=== PATIENT | male | born 1990 | race Caucasian/White ===

== ENCOUNTER 2018-02-24 15:34 | Emergency (ER) | payer OTHER, SELFPAY ==
[2018-02-24 15:38] VITALS: BP 121/73; PULSE 130; RESP 18; TEMP 36.6; O2SAT 95
[2018-02-24] MEDS: Dexamethasone 10 MG/ML VIAL PO (15:55)
--- NOTE | 2018-02-24 15:55 | W.ED.GENAD ---
Discharge Plan Disposition Patient Disposition: HOME Condition: Good Discharge Details Chief Complaint: Sorethroat Clinical Impression: Acute streptococcal pharyngitis Primary Care Provider: NONE,NONE ED Provider: Nael Ferguson Home Meds and New Rx's Prescriptions: New amoxicillin 500 mg capsule 500 mg PO TID 10 Days Qty: 30 RF: 0 Discharge Instructions Instructions: Pharyngitis (ED) Additional Instructions: if you have inability to swallow liquids or difficulty breathing return to the emergency department follow up with your primary care provider if symptoms continue this week Discharge Data Discharge Physician: Nael Ferguson Medical Decision Making 27 yo comes in with several days of sore throat. 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 Is strep positive so will start abx, return precautions given Differential Diagnosis strep, viral pharyngitis HPI General Mode of arrival: ambulatory. Date/Time Provider Initiated Documentation: 02/24/18 15:35. Limitations to Documentation: no limitations. Information obtained by: patient. History of Present Illness 27 year old M presents to the emergency department with the chief complaint of sore throat, described as moderate, with intensity rated at 5. Quality is described as aching, Patient reports no radiation. Patient started experiencing this day(s) (3) and it has been constant. No relieving factors improve symptom(s), No exacerbating factors reported . Patient did receive the following treatments prior to arrival, none Related Data Home Medications Medication Instructions Recorded Confirmed amoxicillin 500 mg PO TID 10 Days #30 cap 02/24/18 Previous Rx's Medication Instructions Recorded amoxicillin 500 mg PO TID 10 Days #30 cap 02/24/18 Allergies Allergy/AdvReac Type Severity Reaction Status Date / Time No Known Allergies Allergy Unverified 02/24/18 15:42 General Stated Complaint: Sorethroat CHUY: 3 Review of Systems Review of Systems All systems reviewed & are unremarkable except as noted in HPI and below Constitutional Denies chills, Denies fever(s) and Denies weakness Eyes Denies loss of vision Cardiovascular Denies chest pain and Denies dyspnea Respiratory Denies dyspnea Gastrointestinal Denies abdominal pain, Denies nausea and Denies vomiting Genitourinary Denies dysuria Musculoskeletal Denies joint swelling Integumentary/Breasts Denies rash Neurologic Denies loss of vision and Denies weakness Psychiatric Denies depression Endocrine Denies cold intolerance and Denies heat intolerance Allergic/Immunologic Denies urticaria PFSH Social History Smoking/Tobacco Use Status: Current every day Exam Const General: no acute distress Orientation: alert HENMT Head: normal to inspection Ears: external ears normal General nose exam: external nose normal Mouth: moist mucous membranes Eyes General: appearance normal, both eyes and all related structures Neck Neck: normal visual inspection Resp Effort & Inspection: normal respiratory effort and able to speak in complete sentences Cardio Rate: regular rate Skin General skin exam: no rashes or lesions noted Neuro General: alert and oriented x3 Extrem General: normal to inspection Psych Mental Status: mental status grossly normal Course Vital Signs Temperature 36.6 C 02/24/18 15:38 Pulse 130 H 02/24/18 15:38 Respiratory Rate 18 02/24/18 15:38 Blood Pressure 121/73 02/24/18 15:38 Pulse Oximetry 95 02/24/18 15:38 Temperature 36.6 C 02/24/18 15:38 Temperature Source Temporal Artery Scan 02/24/18 15:38 Pulse 130 H 02/24/18 15:38 Respiratory Rate 18 02/24/18 15:38 Respiratory Effort 02/24/18 15:50 Blood Pressure 121/73 02/24/18 15:38 Pulse Oximetry 95 02/24/18 15:38 Oxygen Delivery Method Room Air 02/24/18 15:38 Oxygen Flow Rate 0 02/24/18 15:38 Lab/Test Results Lab/Test Results: POC Strep Test-AIME(Rapid) Start: 02/24/18 15:44 Freq: .Rapid Strep Test Status: Active Protocol: Document 02/24/18 15:52 GO (Rec: 02/24/18 15:52 GO [id number]) Strep test-AIME(Rapid)-POC POC-Strep test-AIME (Rapid) Positive POC-Strep test-AIME (Rapid) Positive
--- NOTE | 2018-02-24 15:58 | ED.GENADUL_ITS ---
Discharge Plan Disposition Patient Disposition: HOME Condition: Good Discharge Details Chief Complaint: Sorethroat Clinical Impression: Acute streptococcal pharyngitis Primary Care Provider: NONE,NONE ED Provider: Nael Ferguson Home Meds and New Rx's Prescriptions: New amoxicillin 500 mg capsule 500 mg PO TID 10 Days Qty: 30 RF: 0 Discharge Instructions Instructions: Pharyngitis (ED) Additional Instructions: if you have inability to swallow liquids or difficulty breathing return to the emergency department follow up with your primary care provider if symptoms continue this week Discharge Data Discharge Physician: Nael Ferguson Medical Decision Making 27 yo comes in with several days of sore throat. 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 Is strep positive so will start abx, return precautions given Differential Diagnosis strep, viral pharyngitis HPI General Mode of arrival: ambulatory . Date/Time Provider Initiated Documentation: 02/24/18 15:35 . Limitations to Documentation: no limitations . Information obtained by: patient . History of Present Illness 27 year old M presents to the emergency department with the chief complaint of sore throat, described as moderate, with intensity rated at 5. Quality is described as aching, Patient reports no radiation. Patient started experiencing this day(s) (3) and it has been constant. No relieving factors improve symptom(s), No exacerbating factors reported . Patient did receive the following treatments prior to arrival, none Related Data Home Medications Medication Instructions Recorded Confirmed amoxicillin 500 mg PO TID 10 Days #30 cap 02/24/18 Previous Rx's Medication Instructions Recorded amoxicillin 500 mg PO TID 10 Days #30 cap 02/24/18 Allergies Allergy/AdvReac Type Severity Reaction Status Date / Time No Known Allergies Allergy Unverified 02/24/18 15:42 General Stated Complaint: Sorethroat CHUY: 3 Review of Systems Review of Systems All systems reviewed & are unremarkable except as noted in HPI and below Constitutional Denies chills, Denies fever(s) and Denies weakness Eyes Denies loss of vision Cardiovascular Denies chest pain and Denies dyspnea Respiratory Denies dyspnea Gastrointestinal Denies abdominal pain, Denies nausea and Denies vomiting Genitourinary Denies dysuria Musculoskeletal Denies joint swelling Integumentary/Breasts Denies rash Neurologic Denies loss of vision and Denies weakness Psychiatric Denies depression Endocrine Denies cold intolerance and Denies heat intolerance Allergic/Immunologic Denies urticaria PFSH Social History Smoking/Tobacco Use Status: Current every day Exam Const General: no acute distress Orientation: alert HENMT Head: normal to inspection Ears: external ears normal General nose exam: external nose normal Mouth: moist mucous membranes Eyes General: appearance normal, both eyes and all related structures Neck Neck: normal visual inspection Resp Effort & Inspection: normal respiratory effort and able to speak in complete sentences Cardio Rate: regular rate Skin General skin exam: no rashes or lesions noted Neuro General: alert and oriented x3 Extrem General: normal to inspection Psych Mental Status: mental status grossly normal Course Vital Signs Temperature 36.6 C 02/24/18 15:38 Pulse 130 H 02/24/18 15:38 Respiratory Rate 18 02/24/18 15:38 Blood Pressure 121/73 02/24/18 15:38 Pulse Oximetry 95 02/24/18 15:38 Temperature 36.6 C 02/24/18 15:38 Temperature Source Temporal Artery Scan 02/24/18 15:38 Pulse 130 H 02/24/18 15:38 Respiratory Rate 18 02/24/18 15:38 Respiratory Effort 02/24/18 15:50 Blood Pressure 121/73 02/24/18 15:38 Pulse Oximetry 95 02/24/18 15:38 Oxygen Delivery Method Room Air 02/24/18 15:38 Oxygen Flow Rate 0 02/24/18 15:38 Lab/Test Results Lab/Test Results: POC Strep Test-AIME(Rapid) Start: 02/24/18 15: 44 Freq: .Rapid Strep Test Status: Active Protocol: Document 02/24/18 15:52 GO (Rec: 02/24/18 15:52 GO [id number]) Strep test-AIME(Rapid)-POC POC-Strep test-AIME (Rapid) Positive POC-Strep test-AIME (Rapid) Positive
[2018-02-24 16:43] VITALS: BP 118/80; PULSE 80; RESP 18; TEMP 36.8; O2SAT 99
== END 2018-02-24 16:44 | disposition home or self-care (01) ==
PROVIDERS: Emergency Provider Emergency Medicine
DX: J02.0 Streptococcal pharyngitis (principal)
CPT/HCPCS: 87880; 99283; J1100

== ENCOUNTER 2019-08-23 07:14 | Emergency (ER) | payer SELFPAY ==
[2019-08-23 07:21] VITALS: BP 161/110; PULSE 116; RESP 16; TEMP 36.5; O2SAT 97
--- NOTE | 2019-08-23 07:24 | ED.GENADUL_ITS ---
Discharge Plan Disposition Patient Disposition: HOME Condition: Stable Discharge Details Chief Complaint: RespSymp Clinical Impression: Cough, Bronchitis Primary Care Provider: None,None ED Provider: Nael Ferguson Home Meds and New Rx's Prescriptions: New doxycycline hyclate 100 mg tablet 100 mg PO BID Qty: 14 RF: 0 albuterol sulfate 90 mcg/actuation aerosol powdr breath activated 2 inh IH Q4H PRNQty: 1 RF: 0 Discharge Instructions Instructions: Acute Bronchitis (ED), Acute Cough (ED) Additional Instructions: you should not go to work until you have no cough for a day at least if you feel more ill, have worsening shortness of breath or high fevers return to the emergency department Medical Decision Making 28 yo male comes in with cough that is dry for several days. Denies any fevers, chills, travel or sick contacts. HE arrives in no distress speaking in full sentences with clear lung wounds other than very mild apical wheezing bialterally. HE does smoke and drinks daily denies any drug use. I suspect he has either smoker's cough vs bronchitis based on his history. Will treat with inhaler and also doxycyline, advised to f/u with pcp and return precautions given. Has no risk factors for covid19 but still advised to stay home until asymptomatic withot cough and fever Differential Diagnosis Differential Diagnosis: bronchitis, pneumonia, smoker's cough HPI General Mode of arrival: ambulatory . Date/Time Provider Initiated Documentation: 08/23/19 07:16 . Limitations to Documentation: no limitations . Information obtained by: patient . History of Present Illness 28 year old M presents to the emergency department with the chief complaint of cough, described as moderate, Patient started experiencing this day(s) (3) and it has been intermittent. No relieving factors improve symptom(s), No exacerba ting factors reported . Patient did receive the following treatments prior to arrival, none Related Data Home Medications Medication Instructions Recorded Confirmed albuterol sulfate 2 inh IH Q4H PRN #1 each 08/23/19 doxycycline hyclate 100 mg PO BID #14 tab 08/23/19 Previous Rx's Medication Instructions Recorded albuterol sulfate 2 inh IH Q4H PRN #1 each 08/23/19 doxycycline hyclate 100 mg PO BID #14 tab 08/23/19 Allergies Allergy/AdvReac Type Severity Reaction Status Date / Time No Known Allergies Allergy Unverified 08/23/19 07:28 General CHUY: 3 Review of Systems All systems reviewed & are unremarkable except as noted in HPI and below Constitutional Constitutional: Denies chills, Denies fever(s) and Denies weakness Cardiovascular Cardiovascular: Denies dyspnea Respiratory Respiratory: Denies dyspnea Gastrointestinal Gastrointestinal: Denies abdominal pain, Denies nausea and Denies vomiting Musculoskeletal Musculoskeletal: Denies joint swelling Neurologic Neurologic: Denies weakness Psychiatric Psychiatric: Denies depression COUNT INCLUDES THE [facility] Social History Smoking/Tobacco Use Status: Current every day Tobacco Type: cigarettes Alcohol Intake: current Alcohol Intake frequency: 3 or more drinks per day Alcohol type: beer Drug use: Never Do you feel safe at home: Yes Do you feel safe in your relationship?: Yes Exam Const General: no acute distress Orientation: alert HENMT Head: normal to inspection Ears: external ears normal General nose exam: external nose normal Mouth: moist mucous membranes Eyes General: appearance normal, both eyes and all related structures Neck Neck: normal visual inspection Resp Effort & Inspection: normal respiratory effort and able to speak in complete sentences Cardio Rate: regular rate Skin General skin exam: no rashes or lesions noted Neuro General: patient alert and patient oriented x3 Extrem General: normal to inspection Psych Mental Status: mental status grossly normal
--- NOTE | 2019-08-23 10:55 | CMPROGNOTE_ITS ---
- If Service Date Differs Date of service: 08/23/19 Time of Service: 10:55 Care Management Progress Note Gregorio is seen in the ED for cough and bronchitis. At the ED provider's request, CM coordinates a referral to [facility] to assist patient in establishing care with a PCP.
== END 2019-08-23 07:33 | disposition home or self-care (01) ==
LOC: ER 07:34
PROVIDERS: Emergency Provider Emergency Medicine
DX: J40 Bronchitis, not specified as acute or chronic (principal)
CPT/HCPCS: 99283

== ENCOUNTER 2019-08-30 15:38 | Outpatient (CLI) | payer SELFPAY ==
[2019-09-01 16:00] LABS: COVID-19 RT-PCR Result Not Detected ((See Note))
--- NOTE | 2019-09-15 15:04 | CMACTNOTE_ITS ---
- If Service Date Differs Date of service: 09/15/19 Time of Service: 15:04 Care Management Activity Note Per a telephone conversation with Ellie of [facility], patient cancelled the 08/30/2019 appointment and did not reschedule. He also has not completed and returned the new patient packet.
== END 2019-08-30 15:58 ==
PROVIDERS: Visit Provider Physician Assistant
DX: R05 Cough (principal)
CPT/HCPCS: U0003

== ENCOUNTER 2019-10-20 12:14 | Emergency (ER) | payer OTHER, SELFPAY ==
[2019-10-20 12:31] VITALS: BP 144/94; PULSE 106; RESP 16; TEMP 36.8; O2SAT 95
--- NOTE | 2019-10-20 13:24 | W.ED.GENAD ---
Discharge Plan Disposition Patient Disposition: HOME Condition: Stable Discharge Details Chief Complaint: RespSymp Clinical Impression: Acute left otitis media, Smokers' cough Primary Care Provider: Parminder Coto ED Provider: April Thompson Home Meds and New Rx's Prescriptions: New amoxicillin-pot clavulanate [Augmentin] 875-125 mg tablet 1 tab PO BID 7 Days Qty: 14 RF: 0 Discharge Instructions Instructions: How to Stop Smoking (ED), Ear Infection (ED) Additional Instructions: Follow up with primary care provider in 3-5 days. Return to ED sooner if any worsening or concerns. Increase oral fluids. Please take Tylenol or Ibuprofen with food every 4-6 hours as needed for pain and swelling. Take medications as directed. Referrals: Parminder Coto, [employer] [Primary Care Provider] - Discharge Data Discharge Date/Time-TO BE ENTERED AT DEPARTURE: 10/20/19 15:15 Medical Decision Making 28-year-old male presents to the ER with a week and a half of dry cough. He does have associated left ear pain and sore throat pain with coughing. He is a smoker. He also reports mild emesis and headache with hard coughing. He has not had any relief with [id number] medications. He was seen for similar episode in July was prescribed doxycycline and albuterol inhaler. He is also tested recently for COVID-19 on August 29 by his PCP which was negative. He denies any recent travel or any sick contacts was suspicious COVID-19 disease. He states he has been trying to cut down on smoking. 1330: Chest x-ray ordered and 10 mg dexamethasone p.o. ordered. TECHNIQUE: 2D digital imaging was performed. COMPARISON: No exams were available for comparison FINDINGS: The heart is not enlarged. The lungs are clear and well expanded. No pleural effusion seen. Mediastinal contours appear intact. IMPRESSION: Normal chest At this time it appears to be left otitis media. Differential diagnosis includes smoker's cough, viral illness, asthma. Patient given Augmentin 1 tablet p.o. twice daily x7 days. Patient was prescribed albuterol inhaler hand-held prior visit. Instructed to follow-up with patient's primary care provider. HPI General Mode of arrival: ambulatory. Date/Time Provider Initiated Documentation: 10/20/19 13:00. Limitations to Documentation: no limitations. Information obtained by: patient. HPI Narrative: 28-year-old male presents to the ER with a week and a half of dry cough. He does have associated left ear pain and sore throat pain with coughing. He is a smoker. He also reports mild emesis and headache with hard coughing. He has not had any relief with [id number] medications. He was seen for similar episode in July was prescribed doxycycline and albuterol inhaler. He is also tested recently for COVID-19 on August 29 by his PCP which was negative. He denies any recent travel or any sick contacts was suspicious COVID-19 disease. He states he has been trying to cut down on smoking. Related Data Home Medications Medication Instructions Recorded Confirmed amoxicillin-pot clavulanate 1 tab PO BID 7 Days #14 tab 10/20/19 [Augmentin] Previous Rx's Medication Instructions Recorded amoxicillin-pot clavulanate 1 tab PO BID 7 Days #14 tab 10/20/19 [Augmentin] Allergies Allergy/AdvReac Type Severity Reaction Status Date / Time some metals AdvReac Mild Skin Rash Uncoded 10/20/19 12:37 General Stated Complaint: RespSymp CHUY: 3 Review of Systems Narrative: Constitutional: Negative for weight loss, alert and oriented, well groomed, normal body habitus, appears comfortable. HEENT: Denies trauma, headaches, blurry vision, trouble swallowing. Positive left ear pain and throat pain with coughing. Chest: Denies chest pain, palpitations, irregular rhythm, hypertension. Respiratory: Denies Shortness of breath, hemoptysis. Positive dry nonproductive cough. GI: Denies abdominal pain, nausea, vomiting, diarrhea, constipation. : Denies dysuria, hematuria, flank pain, rectal bleeding. Neuro: Denies dizziness, blurry vision, weakness, syncope, headache or facial numbness. Hematologic: Denies easy bruising, intolerance to heat or cold, hair loss. [facility] Social History Smoking/Tobacco Use Status: Current every day Tobacco Type: cigarettes Alcohol Intake: current Alcohol Intake frequency: 3 or more drinks per day Alcohol type: beer Drug use: Never Do you feel safe at home: Yes Do you feel safe in your relationship?: Yes Exam Narrative Exam Narrative: Constitutional: Alert and oriented x3. Appears stated age. Normal body habitus. Head: Normocephalic, no trauma. Eyes: Pupils PERRLA, Red reflex noted, EOM's intact. Eyelids symmetrical without lesions, discharge, or swelling. ENT: Left tympanic membrane erythemic, loss of landmarks. No bulging. External ear normal to inspection, no mastoid TTP, swelling, or erythema, Nasal turbinates WNL, no nasal discharge. Normal dentition, Posterior pharynx erythemic tonsils are 2+ bilaterally, no exudate. Chest: RRR, Normal S1, S2, distal pulses intact. Resp: Lungs clear to auscultation bilaterally, no wheezes, rales, or rhonchi. Musculoskeletal: Normal gait, 5/5 strength to all four extremities. Skin: No suspicious rashes or lesions. Capillary refill less than 2 sec. Neurologic: Cranial nerves II-XII intact. Alert and oriented x 3. DTR's intact. Hematologic/Lymphatic: No ecchymosis, no lymphadenopathy. Course Vital Signs Vital signs: Vital Signs Temperature 36.8 C 10/20/19 12:31 Pulse 106 H 10/20/19 12:31 Respiratory Rate 16 10/20/19 12:31 Blood Pressure 144/94 H 10/20/19 12:31 Pulse Oximetry 95 10/20/19 12:31 Temperature 36.8 C 10/20/19 12:31 Temperature Source Skin 10/20/19 12:31 Pulse 106 H 10/20/19 12:31 Respiratory Rate 16 10/20/19 12:31 Respiratory Effort 10/20/19 12:39 Respiratory Depth Shallow 10/20/19 12:39 Blood Pressure 144/94 H 10/20/19 12:31 Blood Pressure Position Sitting 10/20/19 12:31 Pulse Oximetry 95 10/20/19 12:31 Oxygen Delivery Method Room Air 10/20/19 12:31 Oxygen Flow Rate 0 10/20/19 12:31 Pain Level 4 10/20/19 12:31 Comment 10/20/19 12:31
[2019-10-20] MEDS: Dexamethasone 10 MG/ML VIAL PO (13:38)
--- NOTE | 2019-10-20 13:55 | DI.RAD_ITS ---
EXAM: XR CHEST 2V PA LATERAL CLINICAL HISTORY: persistant dry Cough x 2 weeks TECHNIQUE: 2D digital imaging was performed. COMPARISON: No exams were available for comparison FINDINGS: The heart is not enlarged. The lungs are clear and well expanded. No pleural effusion seen. Mediastin al contours appear intact. IMPRESSION: Normal chest
== END 2019-10-20 15:15 | disposition home or self-care (01) ==
PROVIDERS: Emergency Provider Registered Nurse Emergency; PCP Nurse Practitioner Family
DX: H66.92 Otitis media, unspecified, left ear (principal); J41.0 Simple chronic bronchitis; J02.9 Acute pharyngitis, unspecified; F17.210 Nicotine dependence, cigarettes, uncomplicated
CPT/HCPCS: 99283; 71046; J1100

== ENCOUNTER 2020-09-29 05:35 | Emergency (ER) | payer SELFPAY ==
[2020-09-29 05:38] VITALS: BP 141/100; PULSE 110; RESP 18; TEMP 36.6; O2SAT 96
--- NOTE | 2020-09-29 05:46 | W.ED.GENAD ---
Discharge Plan Disposition Patient Disposition: HOME Condition: Good Discharge Details Clinical Impression: Pharyngitis, Acute left otitis media Primary Care Provider: Parminder Coto ED Provider: Indio Choudhary Home Meds and New Rx's Prescriptions: New amoxicillin-pot clavulanate [Augmentin] 875-125 mg tablet 1 tab PO BID Qty: 14 RF: 0 Discharge Instructions Instructions: Pharyngitis (ED), Ear Infection (ED) Additional Instructions: At this time you have evidence of a mild ear infection and pharyngitis. Please take the antibiotic Augmentin as prescribed. Please also take 800 mg of ibuprofen every 6 hours and 1000 mg of Tylenol every 6 hours as needed to help with any sore throat pain or ear pain. You can also take lsez-ypr-bhbvyug loratadine 10 mg daily to help with the drainage in your ears and to decrease your congestion. If you notice any worsening of your symptoms, or any new symptoms such as vomiting, diarrhea, fever, chills, shortness of breath, chest pain, numbness, weakness, or fainting , please return immediately to the emergency department for reevaluation. Please follow up with your primary care provider as soon as possible for reassessment and reevaluation. As always, it was a pleasure participating in your medical care today. Referrals: Parminder Coto, [employer] [Primary Care Provider] - Medical Decision Making This is a 29-year-old male with a past medical history of tobacco abuse who presents today for evaluation of cough ear pain congestion. Patient states that his children have been sick for the last 2 weeks, with cough runny nose and sore throat. They were tested at their daycare and their Covid test was negative. Patient reports that for the last 4 days he has had cough, bilateral ear pain, and sore throat. He denies any headache or neck pain. He does admit to regular tobacco use smoking about a pack per day. He did does state that he had a fever 4 days ago but has not had any since then. He denies any chest pain, chest heaviness. His cough is mildly productive with noncolored sputum. No other complaints at this time. No other modifying factors. Exam demonstrates a small amount effusion in the patient's left tympanic membrane. Tonsils are red and mildly inflamed on the left. Lungs are clear. No indication for x-ray at this time. Oxygenation stable. Suspect left otitis media in conjunction with potential pharyngitis/strep pharyngitis. We will test for strep. Patient does warrant antibiotic treatment for his ear infection. Will give Augmentin prescription for home. Discussed the importance of Tylenol and Motrin. Strep test was negative. Patient will be discharged home with prescription for Augmentin, recommendations for Tylenol Motrin. Discussed red flags for which to return. I have extensively reviewed the treatment plan and discharge instructions with the patient. I have addressed all patient concerns at this time. The patient was made aware of what symptoms to monitor for that would warrant a return to the emergency department. Discussed the plan with the patient, they demonstrate verbal understanding and agreement with our assessment and plan at this time. The documentation in this chart was dictated using [employer] dictation software. Please excuse any dictation errors. HPI General Date/Time Provider Initiated Documentation: 09/29/20 05:39. HPI Narrative: This is a 29-year-old male with a past medical history of tobacco abuse who presents today for evaluation of cough ear pain congestion. Patient states that his children have been sick for the last 2 weeks, with cough runny nose and sore throat. They were tested at their daycare and their Covid test was negative. Patient reports that for the last 4 days he has had cough, bilateral ear pain, and sore throat. He denies any headache or neck pain. He does admit to regular tobacco use smoking about a pack per day. He did does state that he had a fever 4 days ago but has not had any since then. He denies any chest pain, chest heaviness. His cough is mildly productive with noncolored sputum. No other complaints at this time. No other modifying factors. No loss of taste or smell. Related Data Home Medications Medication Instructions Recorded Confirmed amoxicillin-pot clavulanate 1 tab PO BID #14 tab 09/29/20 [Augmentin] Previous Rx's Medication Instructions Recorded amoxicillin-pot clavulanate 1 tab PO BID #14 tab 09/29/20 [Augmentin] Allergies Allergy/AdvReac Type Severity Reaction Status Date / Time some metals AdvReac Mild Skin Rash Uncoded 10/20/19 12:37 General Stated Complaint: RespSymp CHUY: 4 Review of Systems All systems reviewed & are unremarkable except as noted in HPI and below [facility] Social History Smoking/Tobacco Use Status: Current every day Tobacco Type: cigarettes Smoking risk assessment performed?: Yes Alcohol Intake: current Alcohol Intake frequency: 3 or more drinks per day Alcohol type: beer Drug use: Never Do you feel safe at home: Yes Do you feel safe in your relationship?: Yes Exam Narrative Exam Narrative: 1.Const: Well-nourished, Well-developed, appearing stated age 2.Eyes: PERRL, no conjunctival injection, and symmetrical lids. 3.ENT: Atraumatic external nose and ears. Moist MM. Neck: Symmetric, trachea midline, No thyromegaly. Small effusion in the patient's left ear, no effusion in the patient's right ear. Mild erythema in the left. Tonsils are mildly enlarged, mildly erythematous. Minimal tonsillar exudate on the left. No tonsillar exudate on the right. No signs of Ludewig's angina. No signs of airway compromise whatsoever. 4.CVS: +S1/S2, No murmurs or gallops. Peripheral pulses 2+ and equal in all extremities. Brisk capillary refill in all extremities. 5.RESP: Unlabored respiratory effort. Clear to auscultation bilaterally. No wheezes rales or rhonchi 6.GI: Soft, Nontender/Nondistended, No hepatosplenomegaly. No guarding or rebound. 7.MSK: Normocephalic/Atraumatic, Extremities w/o deformity or ttp No cyanosis or clubbing, Normal movement of all extremities 8.Skin: Warm, Dry. No rashes or lesions. 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 Sensation grossly intact, no focal neurologic deficits. 10.Psych: (AAO) x3. Appropriate mood and affect Course Vital Signs Vital signs: Vital Signs Temperature 36.6 C 09/29/20 05:38 Pulse 110 H 09/29/20 05:38 Respiratory Rate 18 09/29/20 05:38 Blood Pressure 141/100 H 09/29/20 05:38 Pulse Oximetry 96 09/29/20 05:38 Temperature 36.6 C 09/29/20 05:38 Pulse 110 H 09/29/20 05:38 Respiratory Rate 18 09/29/20 05:38 Respiratory Effort Non-Labored 09/29/20 05:41 Respiratory Depth Normal 09/29/20 05:41 Blood Pressure 141/100 H 09/29/20 05:38 Pulse Oximetry 96 09/29/20 05:38 Oxygen Delivery Method Room Air 09/29/20 05:38 Oxygen Flow Rate 0 09/29/20 05:38 Pain Level 4 09/29/20 05:38
[2020-09-29 05:58] VITALS: BP 135/77; PULSE 96
== END 2020-09-29 05:55 | disposition home or self-care (01) ==
LOC: ER 05:56
PROVIDERS: Emergency Provider Student in an Organized Health Care Education/Training Program; PCP Nurse Practitioner Family
DX: H66.92 Otitis media, unspecified, left ear (principal); J02.9 Acute pharyngitis, unspecified
CPT/HCPCS: 87880; 99283; 87081

== ENCOUNTER 2023-02-26 08:22 | Inpatient (IN) | payer BC, SELFPAY ==
[2023-02-26] VITALS (117 sets, daily range): BP systolic 72–157; BP diastolic 45–113; PULSE 59–109; RESP 11–40; TEMP 36–36.7; O2SAT 80–100
--- NOTE | 2023-02-26 | DI.RAD_ITS ---
Exam(s) XR PORTABLE CHEST AP EXAM: XR PORTABLE CHEST AP CLINICAL HISTORY: respiratory failure TECHNIQUE: 2D digital imaging was performed of the chest. One image was obtained. An AP view was ob tained. COMPARISON: CR XR PORTABLE CHEST AP from 02/26/2023 FINDINGS: MEDIASTINUM: Normal. HEART: Normal. PULMONARY VASCULATURE: Normal. LUNGS: There are bilateral pulmonary opacities occupying the right hemithorax and the left lung base medially. PLEURAL SPACE: No pleural effusion or pneumothorax. BONE:Within normal limits for the patient's age. OTHER FINDINGS:The tip of the endotracheal tube is 3 cm above the trena. The left subclavian centra l venous catheter is in good position and likely lies in the proximal superior vena cava. The tip of the nasogastric tube is in the distal esophagus. It should be advanced into the stomach. IMPRESSION: 1. Bilateral pulmonary infiltrates which appears stable. 2. The tip of the enteric tube is in the distal esophagus and should be advanced. DATA REPOSITORY: RADIATION DOSE DELIVERED:
--- NOTE | 2023-02-26 08:30 | RT.EKG_ITS ---
APPROVED REPORT Exam: Resting ECG Reason for Exam: overdose Patient Location: E HR:103 bpm ECG Measurements Heart Rate 103 AXIS AZ 158 P 63 QRSd 86 QRS 74 QT 382 T 49 QTc 500 Conclusion Sinus tachycardia...rate> 99 Prolonged QT interval...QTc >488mS
--- NOTE | 2023-02-26 08:30 | DI.CT_ITS ---
Exam(s) CT HEAD WO EXAM: CT HEAD WO CLINICAL HISTORY: altered. TECHNIQUE: Imaging Protocol: Axial computed tomography images with coronal and sagittal reformatted images were created and reviewed COMPARISON: No exams were available for comparison FINDINGS: The examination is limited due to patient motion artifact. Ventricles and Extra axial spaces: Normal in size and morphology for the patient's age. Hemorrhage: None. Cerebral parenchyma: Normal. Midline shift: None. Brainstem/Cerebellum: Normal. Calvarium: Normal. Visualized Paranasal sinuses/Mastoids: Clear. Soft Tissues: Unremarkable. IMPRESSION: No acute intracranial process. RADIATION DOSE DELIVERED: Total DLP DATA REPOSITORY: All CT scans at this facility are submitted to the National Radiology Data Registry (NRDR) Dose Index Registry (DIR) with the [employer] (ACR). RADIATION OPTIMIZATION: All CT scans at this facility use at least one of these dose optimization te chniques: automated exposure control; mA and/or kV adjustment per patient size (includes targeted exa ms where dose is matched to clinical indication); or iterative reconstruction.
[2023-02-26] MEDS: Ketamine 500 MG/10 ML VIAL 325 MG IM (08:40)
--- NOTE | 2023-02-26 09:02 | W.ED.GENAD ---
Discharge Plan Disposition Patient Disposition: Admit to [facility] Condition: Critical Discharge Details Clinical Impression: Bilateral pulmonary infiltrates, Abnormal transaminases, Acidosis, Acute respiratory failure with hypoxia and hypercarbia, Altered mental status Admit Date/Time: 02/26/23 09:59 Admit Provider: Johnson Carrillo Attending Provider: Johnson Carrillo Primary Care Provider: None,None ED Provider: Cristhian England Discharge Data Discharge Date/Time-TO BE ENTERED AT DEPARTURE: 02/26/23 11:53 Medical Decision Making 908?- Patient was seen immediately on arrival. Patient is a 32-year-old male who arrives by EMS having been found down, hypoxic, bystander CPR. Unknown downtime. EMS has given a total of 6 mg of naloxone and patient did have return of spontaneous ventilation after approximately 20 minutes post administration of naloxone. Patient is saturating in the 80s on nasal cannula. Nonrebreather oxygen applied and now saturating 100%. Patient is quite confused. Patient unable to cooperate with exam and treatment. No signs of head trauma. Unclear etiology for altered mental status. Patient does have needlestick right AC. Concern for polysubstance abuse and opioid overdose. Consider hypoxic brain injury given unknown downtime. Patient was given ketamine 325 mg IM as a procedural sedation to allow for IV access and further diagnostics. IV placed right arm by nursing. Second IV placed left arm by me under ultrasound guidance. Plan for stat CT of the head to assess for acute intracranial hemorrhage. EKG was reviewed and interpreted by me: Sinus tachycardia 103 bpm, prolonged QT interval with QTc of 500. Ketamine wearing off. Patient agitated, anxious and unable to cooperate with exam. given Versed 4 mg IV as anxiolytic. 922 -- Initial labs reviewed and VBG concerning for severe respiratory acidosis. Patient in CT. Patient reassessed and is quite altered. Patient saturating in low 90s on NRB with deep respirations. 943 -- Patient returned from CT and hypoxic on NRB. Rescue breathing provided, patient intubated without complication for hypercarbic respiratory failure and for airway protection. 950 --Labs reviewed: Significant leukocytosis noted. Transaminitis noted. Normal acetaminophen level. CK is slightly elevated. Positive for alcohol. UDS pending. I spoke with Dr. Bridges, on-call critical care physician, she is here to evaluate the patient at bedside. Plan to admit for further treatment. She recommends giving Unasyn given potential for aspiration. 1035 --patient hypotensive. 1 peripheral IV failed. Central line placed for IV access. Continuing IV fluid bolus with plan to initiate Levophed if no improvement. Lab Data Lab results reviewed: Yes I reviewed the patient's lab results. Labs: Laboratory Tests Range/Units 02/26/23 09:00 WBC (4.4-10.8) 10^3/uL 26.13 H* RBC (4.36-5.78) 10^6/uL 6.02 H Hgb (13.5-17.5) g/dL 18.3 H Hct (40.0-50.0) % 58.5 H* MCV (80-95) fL 97 H MCH (27.0-33.0) pg 30.4 MCHC (32.0-36.0) % 31.3 L RDW (11.8-14.1) % 13.8 Plt Count (130-400) 10^3/uL 308 MPV (8.0-11.0) fL 10.7 Immature Gran % See Differential Neutrophils % 76.0 Band Neutrophils % 7 Lymphocytes % 14.0 Monocytes % 1.0 Eosinophils % 1.0 Basophils % 0.0 Metamyelocytes % 1 Nucleated RBC % (0.0-0.3) % 0.0 Absolute Neutrophils (1.2-6.7) 10^3/uL 21.69 H Absolute Lymphocytes (1.2-3.4) 10^3/uL 3.66 H Absolute Monocytes (0.1-0.8) 10^3/uL 0.26 Absolute Eosinophils (0.0-0.7) 10^3/uL 0.26 Absolute Basophils (0.0-0.2) 10^3/uL 0.00 RBC Morphology Normal VBG pH (7.31-7.41) 7.01 L* VBG pCO2 (41-51) mmHg 76 H* VBG pO2 mmHg 33 VBG HCO3 (23-28) mmol/L 19 L VBG Total CO2 (24-29) mmol/L 18 L VBG O2 Saturation % 42 VBG Base Excess (-2-3) mmol/L -12 L Sodium (136-145) mmol/L 137 Potassium (3.5-5.1) mmol/L 4.1 Chloride (98-107) mmol/L 95 L Carbon Dioxide (21.0-32.0) mmol/L 20.8 L Anion Gap (3-11) mmol/L 21.2 H BUN (7-18) mg/dL 15 Creatinine (0.70-1.30) mg/dL 1.7 H Est GFR (CKD-EPI 2020) (mL/min/1.73m2) 53.58 Glucose (74-106) mg/dL 318 H Calcium (8.5-10.1) mg/dL 9.5 Magnesium (1.8-2.4) mg/dL 2.9 H Total Bilirubin (0.2-1.0) mg/dL 0.8 AST (15-37) U/L 778 H ALT (16-63) U/L 506 H Alkaline Phosphatase (46-116) U/L 111 Creatine Kinase (39-308) U/L 643 H Troponin I (<or=60) ng/L 93 H* Total Protein (6.4-8.2) g/dL 9.2 H Albumin (3.4-5.0) g/dL 4.5 Salicylates (<2.8) mg/dL 2.8 Acetaminophen (10-30) ug/mL < 2 Ethyl Alcohol (<10) mg/dL 87.0 H HPI General Mode of arrival: EMS. Date/Time Provider Initiated Documentation: 02/26/23 08:32. Limitations to Documentation: altered mental status. Information obtained by: EMS. HPI Narrative: 32-year-old male presents via EMS with altered mental status. Patient apparently was found down by relative today. He was unresponsive. EMS was called and arrived to find the patient hypoxic in the 60s with a weak pulse in the 70s. He was given naloxone 2 mg intranasally and then 4 mg IM. He responded and had improved respirations after about 20 minutes of BVM ventilation. There apparently was bystander CPR prior to EMS arrival. Patient is altered questioning what did I do? repetitively. No signs of trauma at the scene. Related Data Home Medications Medication Instructions Recorded Confirmed amoxicillin 875 mg-potassium 1 tab PO BID #14 tabs 02/27/23 clavulanate 125 mg tablet Previous Rx's Medication Instructions Recorded amoxicillin 875 mg-potassium 1 tab PO BID #14 tabs 02/27/23 clavulanate 125 mg tablet Allergies Allergy/AdvReac Type Severity Reaction Status Date / Time some metals AdvReac Mild Skin Rash Uncoded 10/20/19 12:37 General Stated Complaint: AMS/LOC CHUY: 2 Review of Systems Unobtainable due to mental status PFSH All Active Problems (Updated 02/28/23 @ 00:02 by ANTONI STOREY) Hypotension (Acute) Aspiration pneumonia (Acute) Elevated LFTs (Acute) Polycythemia (Acute) Leukocytosis (Acute) Polysubstance overdose (Acute) Acute left otitis media (Acute) Pharyngitis (Acute) Pilonidal cyst (Acute) Social History Smoking/Tobacco Use Status: Current every day Tobacco Type: cigarettes Smoking risk assessment performed?: Yes Alcohol Intake: current Alcohol Intake frequency: 3 or more drinks per day Alcohol type: beer Drug use: Never Do you feel safe at home: Yes Do you feel safe in your relationship?: Yes Exam Const General: combative and intoxicated appearing Nutritional Appearance: average body habitus Orientation: oriented to person and confused Limitations: altered mental status HENMT Head: normocephalic, atraumatic, no Swan's sign and no raccoon eyes Mouth: moist mucous membranes Eyes Conjunctivae: normal conjunctivae Sclera: normal sclerae Neck Neck: trachea midline and supple Resp Auscultation: clear to auscultation bilaterally, no rales, no rhonchi and no wheezes Cardio Rate: regular rate and not tachycardic Rhythm: regular rhythm GI Palpation: soft, not firm, no guarding, no masses, not rigid and nontender Skin General skin exam: no rashes or lesions noted Neuro General: patient awake, oriented Patient Orientation: Person and Confused and tone normal Cognition: abnormal cognition Pupils: Dilated: bilateral Other: GCS 13 ([id number]) Extrem General: no edema Psych Speech and Movement: agitated Affect: labile affect Insight: poor Judgment: poor Course Vital Signs Vital signs: Vital Signs Pulse 95 H 02/26/23 08:21 Respiratory Rate 20 02/26/23 08:21 Blood Pressure 137/71 02/26/23 08:21 Pulse 95 H 02/26/23 08:21 Respiratory Rate 40 H 02/26/23 08:36 Respiratory Effort Nasal Flaring 02/26/23 08:27 Blood Pressure 137/71 02/26/23 08:21 Procedures Central Line Placement Left SC: Time Out Performed: Yes Patient Placed on Monitor/Pulse Ox: Yes MD Prep: mask, gown and gloves Central Line Prep: Chlorhexidine scrub and sterile drapes applied Local Anesthetic: Lidocaine 1% Amount of anesthesia used (mL): 2 Ultrasound Used for Placement: Yes Central Line Lumen Inserted: triple Post Procedure: good blood return, all ports aspirated, flushed, capped and sutured in place with nylon Post Procedure X-Ray: tip of catheter in good position Patient Tolerated Procedure: well and no complications Complications: none Intubation Time out performed: Yes sedative: Ketamine paralytic: Rocuronium Mg Given: 85 Laryngoscope: fiberoptic video scope ET Tube Size: 7.5 Tube Secured Depth (cm): 24 Tube Secured Location: lips Tube Placement Confirmation: visualized tube passing through cords Patient Tolerated Procedure: well Intubation Complications: none Critical Care Time Critical Care Time Critical Care Time: Yes Total Critical Care Time: 65 Attestation: I spent greater than 65 minutes addressing this patient's immediate life threats. Please see MDM section of note. This time was spent engaged in work directly related to the patient's care, exclusive of separate procedures, and failure to initiate these interventions would have likely resulted in clinically significant or life threatening deterioration in the patient's condition.
[2023-02-26 09:07] LABS: BE (Venous) -12 mmol/L (-2-3); HCO3 (Venous) 19 mmol/L (23-28); O2 Sat (Venous) 42 %; TCO2 (Venous) 18 mmol/L (24-29); pO2 (Venous) 33 mmHg
[2023-02-26] MEDS: Midazolam 2 MG/2 ML VIAL 4 MG IVP (09:08)
[2023-02-26 09:09] LABS: Abs Immature Grans 0.87 10^3/uL (0.0-0.06); HGB 18.3 g/dL (13.5-17.5); MCH 30.4 pg (27.0-33.0); MCHC 31.3 % (32.0-36.0); MCV 97 fL (80-95); MPV 10.7 fL (8.0-11.0); Platelet Count 308 10^3/uL (130-400); RBC 6.02 10^6/uL (4.36-5.78); RDW 13.8 % (11.8-14.1); RDW-SD 49.9 fL
[2023-02-26 09:14] LABS: pH (Venous) 7.01 (7.31-7.41)
--- NOTE | 2023-02-26 09:14 | NUR.NOTE ---
Yessy Bower, ; called. Pt and his 2 children are living with her. She is the one that found the patient and called 911. She currently has the 2 children and has called DCF. She inquired as to his status which we gave her due to the circumstances of her having the children, she was told he was alive and breathing. She also stated that the son is on Vivance and that she cannot find the pill bottle anywhere in the home. She is concerned that the might have taken it. I did tell her that she should call the son's PCP, explain the situation and have them assist her with getting the son his medication. This information was relayed to Dr. England. Nursing Note:
[2023-02-26 09:15] LABS: pCO2 (Venous) 76 mmHg (41-51)
--- NOTE | 2023-02-26 09:15 | DI.CT_ITS ---
Exam(s) CT CHEST/ABD/PEL WO EXAM: CT CHEST/ABD/PEL WO CLINICAL HISTORY: altered TECHNIQUE: Imaging Protocol: Axial computed tomography images with coronal and sagittal reformatted images were created and reviewed COMPARISON: No exams were available for comparison FINDINGS: The examination is limited due to patient motion artifact. CHEST: Tracheobronchial tree: Patent where visualized. Pulmonary parenchyma: There are bilateral multifocal opacities in the lungs. No architectural distor tion. Mediastinum and Vivi: No dominant adenopathy or fluid collection. There is a small fluid level seen i n the esophagus. Thyroid gland: Unremarkable. Pleura: No effusion or pneumothorax. Heart: The heart is not dilated. Mild coronary artery calcification is present. No pericardial effus ion. Aorta: Thoracic aorta non-dilated. Lymph nodes: Within normal limits. Bones:Within normal limits for the patient's age. Soft tissues: Unremarkable. ABDOMEN: Liver: Normal density. No measurable mass. Gallbladder and Biliary Tract: No radiodense calculus or dilation. Pancreas: Normal density, no abnormal calcifications or inflammatory process. Spleen: Normal. Adrenals: No masses seen. Kidneys: Normal size, contour and axis. No radiodense stones or obstructive uropathy. No masses seen. Abdominal Aorta: Abdominal portion non-dilated. Mild atherosclerosis. Bowel: There is significant motion artifact in the abdomen. No definite free air is seen. However t here is continued concern a repeat CT scan of the abdomen should be obtained. No evidence of bowel w all thickening or obstruction. No evidence of appendicitis. Peritoneal Cavity: No ascites, collection or mesenteric inflammatory response. Evaluation of pneumope ritoneum is limited due to the significant motion artifact in the abdomen and pelvis. If there is co ntinued clinical concern a repeat CT scan should be obtained. Lymph Nodes: Within normal limits. Bones: Within normal limits for the patient's age. Soft Tissues: Unremarkable. PELVIS: Bladder: Symmetric distention, no gross wall thickening. Reproductive Organs: Unremarkable as visualized. Lymph Nodes: Within normal limits. Bones: Within normal limits for the patient's age. IMPRESSION: 1. Diffuse pulmonary infiltrates. Differential considerations include aspiration, hemorrhage, pulmon juliana edema, pneumonia. 2. There is patient motion artifact particularly in the abdomen. Evaluation for pneumoperitoneum is limited due to the motion artifact. If there is continued clinical concern concern, a repeat CT scan should be obtained. 3. No fracture is identified. 4. No acute abdominal pelvic process is seen. 5. Findings were discussed with the emergency department at 10:05 a.m. on 02/26/2023. RADIATION DOSE DELIVERED: Total DLP Total DLP DATA REPOSITORY: All CT scans at this facility are submitted to the National Radiology Data Registry (NRDR) Dose Index Registry (DIR) with the [employer] (ACR). RADIATION OPTIMIZATION: All CT scans at this facility use at least one of these dose optimization te chniques: automated exposure control; mA and/or kV adjustment per patient size (includes targeted exa ms where dose is matched to clinical indication); or iterative reconstruction.
--- NOTE | 2023-02-26 09:15 | DI.CT_ITS ---
Exam(s) CT CERVICAL SPINE WO EXAM: CT CERVICAL SPINE WO CLINICAL HISTORY: found down. TECHNIQUE: Imaging Protocol: Axial computed tomography images with coronal and sagittal reformatted images were created and reviewed COMPARISON: No exams were available for comparison FINDINGS: The examination is limited due to patient motion artifact. Bones: No acute fracture or subluxation. Soft Tissues: Unremarkable. Lung Apices: Ground-glass infiltrates are seen in the lung apices. These may represent pneumonia, ed jovani, hemorrhage or pulmonary contusions. No apical pneumothorax is seen. IMPRESSION: 1. Examination limited by patient motion artifact. 2. No acute fractures or subluxations in the cervical spine. 3. Ground-glass infiltrates in the lung apices. Differential considerations include pneumonia, edema , hemorrhage or pulmonary contusions. RADIATION DOSE DELIVERED: Total DLP Total DLP DATA REPOSITORY: All CT scans at this facility are submitted to the National Radiology Data Registry (NRDR) Dose Index Registry (DIR) with the [employer] (ACR). RADIATION OPTIMIZATION: All CT scans at this facility use at least one of these dose optimization te chniques: automated exposure control; mA and/or kV adjustment per patient size (includes targeted exa ms where dose is matched to clinical indication); or iterative reconstruction.
[2023-02-26 09:30] LABS: Salicylate 2.8 mg/dL (<2.8)
[2023-02-26 09:31] LABS: Acetaminophen < 2 ug/mL (10-30); Creatine Kinase 643 U/L (39-308)
[2023-02-26 09:32] LABS: ALT 506 U/L (16-63); AST 778 U/L (15-37); Albumin 4.5 g/dL (3.4-5.0); Alkaline Phosphatase 111 U/L (46-116); Anion Gap 21.2 mmol/L (3-11); BUN 15 mg/dL (7-18); Bilirubin, Total 0.8 mg/dL (0.2-1.0); CO2 20.8 mmol/L (21.0-32.0); CREATININE 1.7 mg/dL (0.70-1.30); Calcium 9.5 mg/dL (8.5-10.1); Chloride 95 mmol/L (98-107); Estimated GFR 53.58 (mL/min/1.73m2); Glucose 318 mg/dL (74-106); HCT 58.5 % (40.0-50.0); Magnesium 2.9 mg/dL (1.8-2.4); Potassium 4.1 mmol/L (3.5-5.1); Sodium 137 mmol/L (136-145); Total Protein 9.2 g/dL (6.4-8.2); WBC 26.13 10^3/uL (4.4-10.8)
[2023-02-26] MEDS: Rocuronium 50 MG/5 ML SYR 85 MG IVP (09:33)
[2023-02-26 09:34] LABS: Troponin I 93 ng/L (<or=60)
[2023-02-26] MEDS: PROPOFOL 1,000 MG/100 ML BTL 10.015 MG IVPB (09:36)
[2023-02-26] MEDS: Normal Saline 1,000 ML 1000 ML IV (09:38)
[2023-02-26 09:42] LABS: Absolute Lymphocyte Count 3.66 10^3/uL (1.2-3.4); Absolute Monocyte Count 0.26 10^3/uL (0.1-0.8); Absolute Neutrophil Count 21.69 10^3/uL (1.2-6.7); Bands % 7
[2023-02-26 09:44] LABS: Absolute Eosinophil Count 0.26 10^3/uL (0.0-0.7); Diff Comment Manual Differential; Metamyelocytes % 1; RBC Morphology Normal
--- NOTE | 2023-02-26 09:45 | DI.RAD_ITS ---
Exam(s) XR PORTABLE CHEST AP EXAM: XR PORTABLE CHEST AP CLINICAL HISTORY: intubation TECHNIQUE: 2D digital imaging was performed of the chest. Three images were obtained. AP views wer e obtained. COMPARISON: No exams were available for comparison FINDINGS: MEDIASTINUM: Normal. HEART: Normal. PULMONARY VASCULATURE: Normal. LUNGS: Bilateral pulmonary infiltrates are seen, right greater than left. PLEURAL SPACE: No pleural effusion or pneumothorax. BONE:Within normal limits for the patient's age. OTHER FINDINGS:There is an endotracheal tube present. The tip lies 3.5 cm above the trena. There i s a left subclavian central venous catheter. The tip lies just beyond the confluence of the subclavi an veins probably in the proximal superior vena cava. There is an enteric tube. The tip is above th e gastroesophageal junction. IMPRESSION: 1. Bilateral pulmonary infiltrates, right greater than left. Differential considerations include asp iration, pneumonia, hemorrhage or pulmonary edema. 2. The tip of the enteric tube is in the distal esophagus and should be advanced. 3. Both the endotracheal tube and the left subclavian central venous catheter appear to be in good po sition. 4. Findings were discussed with Dr. England on 02/26/2023. DATA REPOSITORY: RADIATION DOSE DELIVERED:
--- NOTE | 2023-02-26 09:58 | NUR.NOTE ---
Nursing Note: Pt arrived to from [facility] approximately 822. Pt was intoxicated last night, found this morning not conscious not breathing. By stander CPR was started until EMS arrived. Pt was awake, not alert, confused on arrival. 847: ketamine was given IM 325mg, IV access obtained by Dr. England. Pt recieved versed 4 ml at 09. Pt went to CT where pt respirations became labored, oxygen saturation in mid 70s. Pt came back to emergency department where he was intubated. Bagging started 925. 8.5mg of rocuronium was given, intubation tube 24 at teeth, propofol was started at 0935. Dr. England looking for a central line at this time of note.
--- NOTE | 2023-02-26 10:05 | PUCC_ITS ---
General Date of Service Date of service: 02/26/23 Time of Service: 10:05 Reason for Admission to ICU: Polysubstance Overdose Assessment and Plan Assessment and plan (1) Polysubstance overdose: Status: Acute (2) Leukocytosis: Status: Acute (3) Polycythemia: Status: Acute (4) Acute respiratory failure with hypoxia and hypercapnia: Status: Acute (5) Increased anion gap metabolic acidosis: Status: Acute (6) Elevated CK: Status: Acute (7) Metabolic acidosis, normal anion gap (NAG): Status: Acute (8) Respiratory acidosis: Status: Acute (9) JOHNY (acute kidney injury): Status: Acute (10) Hyperglycemia: Status: Acute (11) Elevated LFTs: Status: Acute (12) Elevated troponin: Status: Acute (13) Prolonged QT interval: Status: Acute (14) Alcohol intoxication: Status: Acute (15) Aspiration pneumonia: Status: Acute (16) Hypotension: Status: Acute Assessment and plan: This is a 32 yo who is mechanically ventilated and will be admitted to the ICU for polysubstance overdose. He has signs of organ dysfunction, likely due to hypoxia. With supportive care, these should improve. His CK is elevated, but is only in the 600's do unlikely true rhabdo. His liver enzymes are also elevated, and most consistent with his presentation is shock liver from hypoxia. That martínez llanos said, he is high risk with IVDU so a hepatitis panel and HIV test have been ordered. His chest CT shows bilateral infiltrates, which could represent hemorrhage (did receive bystander CPR), but given his story and assessment, is most consistent with aspiration so I do recommend Unasyn. Recommendations Pulmonary: Acute hypoxic and hypercpanic respiratory failure - mechanically ventilated: volume control - correction of hypercapnia has occurred - aspiration precautions - pending tube confirmation CXR - wean FiO2 as able - SBT tomorrow morning Cardiac: Elevated troponin - no ischemic EKG findings - likely hypoxia related - continue to trend - recommend repeat EKG's with troponin bumps to assess for dynamic changes Hypotension - likely 2/2 sedation, but possible sepsis from aspiratiom - recommend CVC placement and Levophed if needed Prolonged QTc - recommend repeat EKG in morning, if a repeat is not already done Renal: JOHNY - pre-renal versus ATN - urine sodium - continue to monitor - recommend Galeana placement - strict I/O's Mixed AGMA, NAGMA, and respiratory acidosis - respiratory acidosis improved with ventilation - lactate level ordered - likely due to organ hypoxia, JOHNY and hypercapnia I&O: Intake & Output 02/23/23 02/24/23 02/25/23 02/26/23 23:59 23:59 23:59 23:59 Weight 83.461 kg Daily Fluid Goal:: even GI Nutrition: Nutrition - if not extubated tomorrow, will add tube feeds - NPO for now Elevated liver enzymes - likely shock liver - hepatitis panel and HIV ordered Infectious Disease: Aspiration Pneumonia - recommend Unasyn - sputum culture if able Hematologic: Leukocytosis - likely reactive vs sepsis Polycythemia - unclear etiology: chronic hypoxia versus dehydration? Neurologic: Polysubstance overdose - f/u UDS - supportive care - awakening trial tomorrow morning Endocrine: Hyperglycemia - recommend SSI control Lines: ETT Galeana Subclavian Prophylaxis: recommend chemical DVT ppx recommend GI ppx Code Status: Full Subjective Critical and life-threatening events over the past 24 hours: This is a 32 yo with a history of substance use disorder presents after being found down and hypoxic. Bystander CPR, however upon EMS arrival there was a pulse. Naloxone given with partial response. In the ED he became agitated and subsequently somnolent after Versed and Ketamine. His VBG found a severe acute respiratory acidosis and he was subsequently intubated. His labs find an elevated WBC count, as well as signs or hypoxia related organ injury of liver, kidneys, heart He did have a painter CT scan. Head CT normal, C-spine normal, C/A/P is abnormal with bilateral (but predominantly right sided) alveolar infiltrates. Exam Narrative Exam Narrative: Gen: NAD, normal respiratory effort, well-nourished HENT: PERRL Chest: Bilateral crackles Heart: regular rate and rhythym, no murmurs, rubs or gallops Abdomen: Non-distended, soft, non tender Extremities: No clubbing, edema, cyanosis, rashes Neuro: sedated and intubated Psych: sedated and intubated Most Recent VS/Results Last Vital Signs Pulse 95 H 02/26/23 08:21 Resp 18 02/26/23 09:48 BP 119/75 02/26/23 09:48 Pulse Ox 99 02/26/23 09:48 Laboratory Results - last 24 hr 02/26/23 09:00 WBC 26.13 H* RBC 6.02 H Hgb 18.3 H Hct 58.5 H* MCV 97 H MCH 30.4 MCHC 31.3 L RDW 13.8 Plt Count 308 MPV 10.7 Immature Gran % See Differential Neutrophils % 76.0 Band Neutrophils % 7 Lymphocytes % 14.0 Monocytes % 1.0 Eosinophils % 1.0 Basophils % 0.0 Metamyelocytes % 1 Nucleated RBC % 0.0 Absolute Neutrophils 21.69 H Absolute Lymphocytes 3.66 H Absolute Monocytes 0.26 Absolute Eosinophils 0.26 Absolute Basophils 0.00 RBC Morphology Normal VBG pH 7.01 L* VBG pCO2 76 H* VBG pO2 33 VBG HCO3 19 L VBG Total CO2 18 L VBG O2 Saturation 42 VBG Base Excess -12 L Sodium 137 Potassium 4.1 Chloride 95 L Carbon Dioxide 20.8 L Anion Gap 21.2 H BUN 15 Creatinine 1.7 H Est GFR (CKD-EPI 2020) 53.58 Glucose 318 H Calcium 9.5 Magnesium 2.9 H Total Bilirubin 0.8 AST 778 H ALT 506 H Alkaline Phosphatase 111 Creatine Kinase 643 H Troponin I 93 H* Total Protein 9.2 H Albumin 4.5 Salicylates 2.8 Acetaminophen < 2 Ethyl Alcohol 87.0 H Review of Systems Unobtainable due to endotracheal tube Time spent with patient Time spent in Critical Care: 60 Time spent in Critical care included: Chart review, Documenting critically ill care, Time at immediate bedside and Discussing critically ill care with other medical staff Pocus Exam Limited Cardiac Exam DATE OF EXAM: 02/26/23 TIME OF EXAM: 10:30 PROVIDER THAT PERFORMED THE STUDY: Mesha Bridges IS THIS A REPEAT EXAM DURING THIS ENCOUNTER: no REASON FOR EXAM: Hypoxia VISUALIZED STRUCTURES: four chambers and Interventricular septum VIEW OBTAINED: Subxiphoid PERTINENT FINDINGS/IMPRESSION: LV dysfunction and Plethoric IVC Exam complete
--- NOTE | 2023-02-26 10:06 | NUR.NOTE ---
Per Dr Ovalle head and neck are negative. Chest,abd, pelvic, the lungs pulmonary infiltrates, probably aspiration, ? edema, hemorrhage, pneumonia. 1004 Nursing Note:
[2023-02-26 10:42] LABS: Source Nasal/Nares
[2023-02-26] MEDS: AMPICILLIN/SULBACTAM 3 GM in Normal Saline 100 ML IVPB (10:44)
[2023-02-26 11:00] LABS: Lactate 8.6 mmol/L (0.6-1.4)
[2023-02-26 11:30] LABS: COVID-19 PCR Negative (Negative)
[2023-02-26 11:35] LABS: *AMPHETAMINES SCREEN URINE Negative (Negative); *BARBITURATES SCREEN URINE Negative (Negative); *BENZODIAZEPINES SCREEN URINE Negative (Negative); Cannabinoids THC Positive (Negative); Cocaine Screen,Urine Negative (Negative); METHADONE URINE SCREEN Positive (Negative); OPIATES URINE SCREEN Negative (Negative)
[2023-02-26 11:37] LABS: Tricyclic Antidepressants Negative (Negative)
[2023-02-26 12:08] LABS: Troponin I 140 ng/L (<or=60)
--- NOTE | 2023-02-26 13:09 | NUR.NOTE ---
Nursing Note: DCP contacted about wellbeing of children in the home with patient. Case # [id number]
[2023-02-26] MEDS: Norepinephrine in D5W 8 MG/250 ML BAG 9.375 MG IV (13:34)
[2023-02-26] MEDS: Normal Saline Flush 10 ML SYR IVP ×3 (13:36→22:19)
[2023-02-26 13:53] LABS: Sodium, Urine 60 mmol/L
[2023-02-26 14:09] LABS: Lactate 2.9 mmol/L (0.6-1.4)
[2023-02-26 14:49] LABS: BE -2 mmol/L (-2-3); HCO3 25 mmol/L (22-26); pCO2 57 mmHg (35-45); pH 7.25 (7.35-7.45); pO2 85 mmHg (80-105); sO2 96 % (95-98); tCO2 23 mmol/L (23-27)
[2023-02-26 14:50] LABS: Site Right Radial
[2023-02-26 15:02] LABS: Troponin I 200 ng/L (<or=60)
[2023-02-26] MEDS: PROPOFOL 1,000 MG/100 ML BTL 30.046 MG IVPB (15:20)
[2023-02-26] MEDS: Ketorolac 30 MG/ML VIAL IVP (15:33)
[2023-02-26] MEDS: Enoxaparin 40 MG/0.4 ML SYR SC (15:33)
[2023-02-26 16:03] LABS: MRSA PCR Negative (Negative)
--- NOTE | 2023-02-26 16:15 | RT.EKG_ITS ---
APPROVED REPORT Exam: Resting ECG Reason for Exam: increasing troponin Patient Location: I HR:78 bpm ECG Measurements Heart Rate 78 AXIS IL 139 P 75 QRSd 79 QRS 66 QT 355 T 60 QTc 405 Conclusion Sinus rhythm...normal P axis, V-rate 50- 99 Low voltage, extremity leads...all extremity leads <0.5mV Otherwise normal ECG
[2023-02-26] MEDS: Pantoprazole 40 MG VIAL IVP (16:36)
[2023-02-26] MEDS: ACETAMINOPHEN 1,000 MG/100 ML BTL 400 MG IVPB (16:38)
[2023-02-26 16:59] LABS: BE (Venous) 0 mmol/L (-2-3); HCO3 (Venous) 27 mmol/L (23-28); O2 Sat (Venous) 88 %; TCO2 (Venous) 24 mmol/L (24-29); pCO2 (Venous) 57 mmHg (41-51); pH (Venous) 7.28 (7.31-7.41); pO2 (Venous) 55 mmHg
[2023-02-26] MEDS: dexmedeTOMidine IN 0.9 % NACL 400 MCG/100 ML BTL IV (17:00)
--- NOTE | 2023-02-26 17:53 | W.PM.HP.N ---
Date of service: 02/26/23 Time of Service: 17:53 Assessment and Plan Assessment and plan (1) Acute respiratory failure with hypoxia and hypercapnia: Status: Acute Assessment and plan: Volume control mechanical ventilation Dr Bridges managing. On propofol and precedex. (2) Polysubstance overdose: Status: Acute Assessment and plan: UDS + for methadone and THC. Alcohol +. Qualifiers: Encounter type: initial encounter Injury intent: accidental or unintentional Qualified Code(s): T50.901A - Poisoning by unspecified drugs, medicaments and biological substances, accidental (unintentional), initial encounter (3) Aspiration pneumonia: Status: Acute Assessment and plan: Involving all of right lung On Unasyn Qualifiers: Aspiration pneumonia type: unspecified Laterality: right Lung location: unspecified part of lung Qualified Code(s): J69.0 - Pneumonitis due to inhalation of food and vomit (4) Elevated troponin: Status: Acute Assessment and plan: Trending. Likely d/t hypoxia. (5) Elevated LFTs: Status: Acute Assessment and plan: Likely from shock liver. Monitor. Hepatitis panel sent. (6) JOHNY (acute kidney injury): Status: Acute Assessment and plan: LIkely ATN but also possibly pre-renal IV boluses x 2L initially given. Now on maintanence fluids. Urine Na pending. (7) Alcohol intoxication: Status: Acute Assessment and plan: When extubated will monitor CIWA scores. Qualifiers: Qualified Code(s): F10.920 - Alcohol use, unspecified with intoxication, uncomplicated (8) Hypotension: Status: Acute Assessment and plan: Now on Norepinephrine drip. Qualifiers: Hypotension type: other hypotension type Qualified Code(s): I95.89 - Other hypotension (9) Elevated CK: Status: Acute Assessment and plan: Mild. Receiving IV fluids. (10) Prolonged QT interval: Status: Acute Assessment and plan: Repeat EKG with QT of 355 (previously 382), QTc 405 (previously 500) History of Present Illness History of Present Illness Chief Complaint: Unresponsive Narrative: This is a 32 yo with a PMH of polysubstance abuse who was found down by a relative. CPR initiated. EMS arrived and pulse was found. Naloxone administered with a partial response. In the ED he was agitated and given versed and ketamine and then was somnolent and able to have a CT head which was negative for acute findings. WBC count 26. Hgb 18. Bands 7. VBG pH 7.01, pCO2 76. Na 137. K 4.1. BUN 15. Creatinine 1.7. Glucose 318. Mg 2.9. Total bili 0.8. AST 778. ALT 506. Troponin 93>140>200. CPK 643. UDS + for methadone and THC. Alcohol 87 CXR shows diffuse right sided infiltrate; consistent with aspiration. Dr Bridges consulted. Pt intubated. On propofol. Admitted to the ICU. Review of Systems All systems reviewed & are unremarkable except as noted in HPI and below PFSH All Active Problems (Updated 02/26/23 @ 18:17 by Johnson Carrillo MD) Elevated CK (Acute) Hypotension (Acute) Aspiration pneumonia (Acute) Alcohol intoxication (Acute) Prolonged QT interval (Acute) Elevated troponin (Acute) Elevated LFTs (Acute) Hyperglycemia (Acute) JOHNY (acute kidney injury) (Acute) Respiratory acidosis (Acute) Metabolic acidosis, normal anion gap (NAG) (Acute) Increased anion gap metabolic acidosis (Acute) Acute respiratory failure with hypoxia and hypercapnia (Acute) Polycythemia (Acute) Leukocytosis (Acute) Polysubstance overdose (Acute) Acute left otitis media (Acute) Pharyngitis (Acute) Pilonidal cyst (Acute) Social History Smoking/Tobacco Use Status: Current every day Tobacco Type: cigarettes Smoking risk assessment performed?: Yes Alcohol Intake: current Alcohol Intake frequency: 3 or more drinks per day Alcohol type: beer Drug use: Never Do you feel safe at home: Yes Do you feel safe in your relationship?: Yes Meds Allergies and Home Medications Allergies Allergy/AdvReac Type Severity Reaction Status Date / Time some metals AdvReac Mild Skin Rash Uncoded 10/20/19 12:37 Home Medications Medication Instructions Recorded Confirmed Type amoxicillin 875 mg-potassium 1 tab PO BID #14 tabs 09/29/20 Rx clavulanate 125 mg tablet (Augmentin) Exam Narrative Exam Narrative: Gen: Intubated. Sedated. HEENT: sclera clear. PERRL Lungs: Anteriorly clear with bilateral crackles posteriorly. CV: RRR, no murmu Abd: soft, ND. Exts: cool with cap refill of great toe of 4 secs. No edema. Neuro: sedated and intubated. Had previously Barbie. Results Labs 02/26/23 09:00 02/26/23 09:00 Labs: Laboratory Results - last 24 hr 02/26/23 02/26/23 02/26/23 09:00 10:40 10:45 WBC 26.13 H* RBC 6.02 H Hgb 18.3 H Hct 58.5 H* MCV 97 H MCH 30.4 MCHC 31.3 L RDW 13.8 Plt Count 308 MPV 10.7 Immature Gran % See Differential Neutrophils % 76.0 Band Neutrophils % 7 Lymphocytes % 14.0 Monocytes % 1.0 Eosinophils % 1.0 Basophils % 0.0 Metamyelocytes % 1 Nucleated RBC % 0.0 Absolute Neutrophils 21.69 H Absolute Lymphocytes 3.66 H Absolute Monocytes 0.26 Absolute Eosinophils 0.26 Absolute Basophils 0.00 RBC Morphology Normal ABG Sample Site ABG pH ABG pCO2 ABG pO2 ABG HCO3 ABG Total CO2 ABG O2 Saturation ABG Base Excess VBG pH 7.01 L* VBG pCO2 76 H* VBG pO2 33 VBG HCO3 19 L VBG Total CO2 18 L VBG O2 Saturation 42 VBG Base Excess -12 L VBG Lactate 8.6 H* Sodium 137 Potassium 4.1 Chloride 95 L Carbon Dioxide 20.8 L Anion Gap 21.2 H BUN 15 Creatinine 1.7 H Est GFR (CKD-EPI 2020) 53.58 Glucose 318 H Calcium 9.5 Magnesium 2.9 H Total Bilirubin 0.8 AST 778 H ALT 506 H Alkaline Phosphatase 111 Creatine Kinase 643 H Troponin I 93 H* Total Protein 9.2 H Albumin 4.5 Ur Random Sodium Salicylates 2.8 Urine Opiates Screen Urine Methadone Screen Acetaminophen < 2 Ur Barbiturates Screen Ur Tricyclics Screen Ur Amphetamines Screen U Benzodiazepines Scrn Urine Cocaine Screen Ur THC Screen Ethyl Alcohol 87.0 H COVID-19 Source Nasal/Nares SARS-CoV-2 (PCR) Negative MRSA (TEM-PCR) 02/26/23 02/26/23 02/26/23 11:08 11:40 13:20 WBC RBC Hgb Hct MCV MCH MCHC RDW Plt Count MPV Immature Gran % Neutrophils % Band Neutrophils % Lymphocytes % Monocytes % Eosinophils % Basophils % Metamyelocytes % Nucleated RBC % Absolute Neutrophils Absolute Lymphocytes Absolute Monocytes Absolute Eosinophils Absolute Basophils RBC Morphology ABG Sample Site ABG pH ABG pCO2 ABG pO2 ABG HCO3 ABG Total CO2 ABG O2 Saturation ABG Base Excess VBG pH VBG pCO2 VBG pO2 VBG HCO3 VBG Total CO2 VBG O2 Saturation VBG Base Excess VBG Lactate Sodium Potassium Chloride Carbon Dioxide Anion Gap BUN Creatinine Est GFR (CKD-EPI 2020) Glucose Calcium Magnesium Total Bilirubin AST ALT Alkaline Phosphatase Creatine Kinase Troponin I 140 H* Total Protein Albumin Ur Random Sodium 60 Salicylates Urine Opiates Screen Negative Urine Methadone Screen Positive A Acetaminophen Ur Barbiturates Screen Negative Ur Tricyclics Screen Negative Ur Amphetamines Screen Negative U Benzodiazepines Scrn Negative Urine Cocaine Screen Negative Ur THC Screen Positive A Ethyl Alcohol COVID-19 Source SARS-CoV-2 (PCR) MRSA (TEM-PCR) Negative 02/26/23 02/26/23 02/26/23 13:58 16:50 Unknown WBC RBC Hgb Hct MCV MCH MCHC RDW Plt Count MPV Immature Gran % Neutrophils % Band Neutrophils % Lymphocytes % Monocytes % Eosinophils % Basophils % Metamyelocytes % Nucleated RBC % Absolute Neutrophils Absolute Lymphocytes Absolute Monocytes Absolute Eosinophils Absolute Basophils RBC Morphology ABG Sample Site Right Radial ABG pH 7.25 L ABG pCO2 57 H ABG pO2 85 ABG HCO3 25 ABG Total CO2 23 ABG O2 Saturation 96 ABG Base Excess -2 VBG pH 7.28 L VBG pCO2 57 H VBG pO2 55 VBG HCO3 27 VBG Total CO2 24 VBG O2 Saturation 88 VBG Base Excess 0 VBG Lactate 2.9 H* Sodium Potassium Chloride Carbon Dioxide Anion Gap BUN Creatinine Est GFR (CKD-EPI 2020) Glucose Calcium Magnesium Total Bilirubin AST ALT Alkaline Phosphatase Creatine Kinase Troponin I 200 H* Total Protein Albumin Ur Random Sodium Salicylates Urine Opiates Screen Urine Methadone Screen Acetaminophen Ur Barbiturates Screen Ur Tricyclics Screen Ur Amphetamines Screen U Benzodiazepines Scrn Urine Cocaine Screen Ur THC Screen Ethyl Alcohol COVID-19 Source SARS-CoV-2 (PCR) MRSA (TEM-PCR) Last Vital Signs Temp 36.5 C 02/26/23 17:29 Pulse 72 02/26/23 17:30 Resp 16 02/26/23 17:30 BP 95/69 L 02/26/23 17:30 Pulse Ox 97 02/26/23 17:30 Time Spent Time spent with Patient: 40-54 minutes Time was spent: preparing to see the patient(eg.review tests), obtaining and/or reviewing separately otained hiistory, referring, communicating with other health career services coordinator, indepentently interpreting results and care coordination
[2023-02-26] MEDS: Lidocaine 5% Patch 2 PATCH TP (18:20)
[2023-02-26] MEDS: PROPOFOL 1,000 MG/100 ML BTL 22.534 MG IVPB (18:57)
[2023-02-26 19:11] LABS: Anion Gap 7.2 mmol/L (3-11); BUN 20 mg/dL (7-18); CO2 25.8 mmol/L (21.0-32.0); CREATININE 1.1 mg/dL (0.70-1.30); Calcium 8.4 mg/dL (8.5-10.1); Chloride 104 mmol/L (98-107); Estimated GFR 90.34 (mL/min/1.73m2); Glucose 114 mg/dL (74-106); Sodium 137 mmol/L (136-145)
[2023-02-26 19:12] LABS: Creatine Kinase 1667 U/L (39-308)
[2023-02-26 19:17] LABS: Troponin I 203 ng/L (<or=60)
[2023-02-26 19:52] LABS: Potassium 5.8 mmol/L (3.5-5.1)
[2023-02-26 20:28] LABS: Potassium 5.6 mmol/L (3.5-5.1)
[2023-02-26] MEDS: Normal Saline 1,000 ML 100 ML IV (21:14)
[2023-02-26] MEDS: PROPOFOL 1,000 MG/100 ML BTL 21.032 MG IVPB (22:44)
[2023-02-26] MEDS: dexmedeTOMidine IN 0.9 % NACL 400 MCG/100 ML BTL 12.2 MCG IV (23:04)
[2023-02-27] VITALS (45 sets, daily range): BP systolic 82–109; BP diastolic 35–68; PULSE 54–79; RESP 7–28; TEMP 31–37.3; O2SAT 77–100
[2023-02-27] MEDS: ACETAMINOPHEN 1,000 MG/100 ML BTL 400 MG IVPB (01:11)
[2023-02-27] MEDS: Norepinephrine in D5W 8 MG/250 ML BAG 13.125 MG IV (02:43)
[2023-02-27] MEDS: PROPOFOL 1,000 MG/100 ML BTL 20.031 MG IVPB (03:32)
[2023-02-27] MEDS: Lidocaine Patch Removal 2 EACH TP (06:03)
[2023-02-27 06:35] LABS: Abs Immature Grans 0.11 10^3/uL (0.0-0.06); Absolute Eosinophil Count 0.03 10^3/uL (0.0-0.7); Absolute Lymphocyte Count 3.46 10^3/uL (1.2-3.4); Basophils % 0.2; Eosinophils % 0.2; HCT 43.5 % (40.0-50.0); HGB 14.3 g/dL (13.5-17.5); Immature Grans % 0.6; MCH 30.2 pg (27.0-33.0); MCHC 32.9 % (32.0-36.0); MCV 92 fL (80-95); MPV 11.4 fL (8.0-11.0); Monocytes % 4.8; Neutrophils % 74.2; Platelet Count 214 10^3/uL (130-400); RBC 4.73 10^6/uL (4.36-5.78); RDW 13.8 % (11.8-14.1); RDW-SD 47.2 fL; WBC 17.32 10^3/uL (4.4-10.8)
[2023-02-27 06:36] LABS: Absolute Basophil Count 0.03 10^3/uL (0.0-0.2); Absolute Monocyte Count 0.83 10^3/uL (0.1-0.8); Absolute Neutrophil Count 12.85 10^3/uL (1.2-6.7)
--- NOTE | 2023-02-27 06:45 | W.PULMCC ---
General Date of Service Date of service: 02/27/23 Time of Service: 06:45 Reason for Admission to ICU: Polysubstance Overdose Assessment and Plan Assessment and plan (1) Polysubstance overdose: Status: Acute Qualifiers: Encounter type: initial encounter Injury intent: accidental or unintentional Qualified Code(s): T50.901A - Poisoning by unspecified drugs, medicaments and biological substances, accidental (unintentional), initial encounter (2) Leukocytosis: Status: Acute (3) Polycythemia: Status: Acute (4) Acute respiratory failure with hypoxia and hypercapnia: Status: Acute (5) Increased anion gap metabolic acidosis: Status: Acute (6) Elevated CK: Status: Acute (7) Metabolic acidosis, normal anion gap (NAG): Status: Acute (8) Respiratory acidosis: Status: Acute (9) JOHNY (acute kidney injury): Status: Acute (10) Hyperglycemia: Status: Acute (11) Elevated LFTs: Status: Acute (12) Elevated troponin: Status: Acute (13) Prolonged QT interval: Status: Acute (14) Alcohol intoxication: Status: Acute Qualifiers: Qualified Code(s): F10.920 - Alcohol use, unspecified with intoxication, uncomplicated (15) Aspiration pneumonia: Status: Acute Qualifiers: Aspiration pneumonia type: unspecified Laterality: right Lung location: unspecified part of lung Qualified Code(s): J69.0 - Pneumonitis due to inhalation of food and vomit (16) Hypotension: Status: Acute Assessment and plan: This is a 32 yo who was mechanically ventilated and will be admitted to the ICU for polysubstance overdose. He has signs of organ dysfunction, likely due to hypoxia. With supportive care, these should improve. His liver enzymes are also elevated, and most consistent with his presentation is shock liver from hypoxia. That being said, he is high risk with IVDU so a hepatitis panel and HIV test have been ordered. His chest CT shows bilateral infiltrates, which could represent hemorrhage (did receive bystander CPR), but given his story and assessment, is most consistent with aspiration so I do recommend 5 days of Unasyn or Augmentin. He was extubated this morning with ease and was prophylactically placed on HFNC given his chest CT. He is most concerned with his kids well being and is convinced his ex-in law's purposefully gave him way too much methadone that caused this. Qualifiers: Hypotension type: other hypotension type Qualified Code(s): I95.89 - Other hypotension Recommendations Pulmonary: Acute hypoxic and hypercpanic respiratory failure - s/p mechanical intubation - extubated to [facility] for prophylaxis Cardiac: Elevated troponin - no ischemic EKG findings - likely hypoxia related - continue to trend - recommend repeat EKG's with troponin bumps to assess for dynamic changes Hypotension - improved once extubated - Levophed D/C'ed - no longer needed - can remove central line Prolonged QTc - recommend repeat EKG Renal: JOHNY - pre-renal - can remove Galeana - strict I/O's Mixed AGMA, NAGMA, and respiratory acidosis - improving - lactate level improved - likely due to organ hypoxia, JOHNY and hypercapnia I&O: Intake & Output 02/24/23 02/25/23 02/26/23 02/27/23 23:59 23:59 23:59 23:59 Intake Total 3242.737 / 3242.737 273.709 / 273.709 Output Total 1385 / 1385 1400 / 1400 Balance 1857.737 / 1857.737 -1126.291 / -1126.291 Weight 81.6 kg 80 kg Daily Fluid Goal:: even GI Nutrition: Nutrition - regular diet ordered Elevated liver enzymes - likely shock liver - hepatitis panel and HIV ordered Infectious Disease: Aspiration Pneumonia - recommend Unasyn or Augmentin for total 5 days course - sputum culture if able Hematologic: Leukocytosis, improving - likely reactive vs sepsis Polycythemia, improved Neurologic: Polysubstance overdose - clear to me this was not a suicide attempt and rather accidental Endocrine: Hyperglycemia - recommend SSI control Lines: Galeana Subclavian Prophylaxis: GI ppx D/C'ed Code Status: Resuscitation Status Full Code Subjective Critical and life-threatening events over the past 24 hours: This morning Gregorio was oversedated, but I stopped his Precedex and Propofol and he awoke with ease. His ventilator settings were much improved and he had an intact mental status. I placed him on a short SBT at 5/5, 30% and we took good tidal breaths with no tachypnea. I ordered him to be extubated. He extubated with no issues. After this I asked him about the circumstances of what happened. He had no idea how he ended up in the hospital. He states Thursday night he was with his ex mother in law and ex brother in law. He had been complaining about back pain (a chronic issue) when his brother in law offered him a 'small' dose of methadone to help. He does not recall anything after this. Exam Narrative Exam Narrative: Gen: NAD, normal respiratory effort, well-nourished HENT: PERRL Chest: Clear ansteriorly Heart: regular rate and rhythym, no murmurs, rubs or gallops Abdomen: Non-distended, soft, non tender Extremities: No clubbing, edema, cyanosis, rashes Neuro: non focal, AAOx2 (did not know date) Psych: cooperative Most Recent VS/Results Last Vital Signs Temp 36.8 C 02/27/23 06:00 Pulse 61 02/27/23 06:00 Resp 16 02/27/23 06:00 BP 98/66 L 02/27/23 06:00 Pulse Ox 98 02/27/23 05:50 Laboratory Results - last 24 hr 02/26/23 02/26/23 02/26/23 09:00 10:40 10:45 WBC 26.13 H* RBC 6.02 H Hgb 18.3 H Hct 58.5 H* MCV 97 H MCH 30.4 MCHC 31.3 L RDW 13.8 Plt Count 308 MPV 10.7 Immature Gran % See Differential Neutrophils % 76.0 Band Neutrophils % 7 Lymphocytes % 14.0 Monocytes % 1.0 Eosinophils % 1.0 Basophils % 0.0 Metamyelocytes % 1 Nucleated RBC % 0.0 Absolute Neutrophils 21.69 H Absolute Lymphocytes 3.66 H Absolute Monocytes 0.26 Absolute Eosinophils 0.26 Absolute Basophils 0.00 RBC Morphology Normal ABG Sample Site ABG pH ABG pCO2 ABG pO2 ABG HCO3 ABG Total CO2 ABG O2 Saturation ABG Base Excess VBG pH 7.01 L* VBG pCO2 76 H* VBG pO2 33 VBG HCO3 19 L VBG Total CO2 18 L VBG O2 Saturation 42 VBG Base Excess -12 L VBG Lactate 8.6 H* Sodium 137 Potassium 4.1 Chloride 95 L Carbon Dioxide 20.8 L Anion Gap 21.2 H BUN 15 Creatinine 1.7 H Est GFR (CKD-EPI 2020) 53.58 Glucose 318 H Calcium 9.5 Magnesium 2.9 H Total Bilirubin 0.8 AST 778 H ALT 506 H Alkaline Phosphatase 111 Creatine Kinase 643 H Troponin I 93 H* Total Protein 9.2 H Albumin 4.5 Ur Random Sodium Salicylates 2.8 Urine Opiates Screen Urine Methadone Screen Acetaminophen < 2 Ur Barbiturates Screen Ur Tricyclics Screen Ur Amphetamines Screen U Benzodiazepines Scrn Urine Cocaine Screen Ur THC Screen Ethyl Alcohol 87.0 H COVID-19 Source Nasal/Nares SARS-CoV-2 (PCR) Negative MRSA (TEM-PCR) 02/26/23 02/26/23 02/26/23 11:08 11:40 13:20 WBC RBC Hgb Hct MCV MCH MCHC RDW Plt Count MPV Immature Gran % Neutrophils % Band Neutrophils % Lymphocytes % Monocytes % Eosinophils % Basophils % Metamyelocytes % Nucleated RBC % Absolute Neutrophils Absolute Lymphocytes Absolute Monocytes Absolute Eosinophils Absolute Basophils RBC Morphology ABG Sample Site ABG pH ABG pCO2 ABG pO2 ABG HCO3 ABG Total CO2 ABG O2 Saturation ABG Base Excess VBG pH VBG pCO2 VBG pO2 VBG HCO3 VBG Total CO2 VBG O2 Saturation VBG Base Excess VBG Lactate Sodium Potassium Chloride Carbon Dioxide Anion Gap BUN Creatinine Est GFR (CKD-EPI 2020) Glucose Calcium Magnesium Total Bilirubin AST ALT Alkaline Phosphatase Creatine Kinase Troponin I 140 H* Total Protein Albumin Ur Random Sodium 60 Salicylates Urine Opiates Screen Negative Urine Methadone Screen Positive A Acetaminophen Ur Barbiturates Screen Negative Ur Tricyclics Screen Negative Ur Amphetamines Screen Negative U Benzodiazepines Scrn Negative Urine Cocaine Screen Negative Ur THC Screen Positive A Ethyl Alcohol COVID-19 Source SARS-CoV-2 (PCR) MRSA (TEM-PCR) Negative 02/26/23 02/26/23 02/26/23 13:58 16:50 20:10 WBC RBC Hgb Hct MCV MCH MCHC RDW Plt Count MPV Immature Gran % Neutrophils % Band Neutrophils % Lymphocytes % Monocytes % Eosinophils % Basophils % Metamyelocytes % Nucleated RBC % Absolute Neutrophils Absolute Lymphocytes Absolute Monocytes Absolute Eosinophils Absolute Basophils RBC Morphology ABG Sample Site ABG pH ABG pCO2 ABG pO2 ABG HCO3 ABG Total CO2 ABG O2 Saturation ABG Base Excess VBG pH 7.28 L VBG pCO2 57 H VBG pO2 55 VBG HCO3 27 VBG Total CO2 24 VBG O2 Saturation 88 VBG Base Excess 0 VBG Lactate 2.9 H* Sodium 137 Potassium 5.8 H D 5.6 H Chloride 104 Carbon Dioxide 25.8 Anion Gap 7.2 BUN 20 H Creatinine 1.1 Est GFR (CKD-EPI 2020) 90.34 Glucose 114 H Calcium 8.4 L Magnesium Total Bilirubin AST ALT Alkaline Phosphatase Creatine Kinase 1667 H Troponin I 200 H* 203 H* Total Protein Albumin Ur Random Sodium Salicylates Urine Opiates Screen Urine Methadone Screen Acetaminophen Ur Barbiturates Screen Ur Tricyclics Screen Ur Amphetamines Screen U Benzodiazepines Scrn Urine Cocaine Screen Ur THC Screen Ethyl Alcohol COVID-19 Source SARS-CoV-2 (PCR) MRSA (TEM-PCR) 02/26/23 02/27/23 Unknown 05:45 WBC 17.32 H RBC 4.73 Hgb 14.3 D Hct 43.5 MCV 92 D MCH 30.2 MCHC 32.9 RDW 13.8 Plt Count 214 MPV 11.4 H Immature Gran % 0.6 Neutrophils % 74.2 Band Neutrophils % Lymphocytes % 20.0 Monocytes % 4.8 Eosinophils % 0.2 Basophils % 0.2 Metamyelocytes % Nucleated RBC % 0.0 Absolute Neutrophils 12.85 H Absolute Lymphocytes 3.46 H Absolute Monocytes 0.83 H Absolute Eosinophils 0.03 Absolute Basophils 0.03 RBC Morphology ABG Sample Site Right Radial ABG pH 7.25 L ABG pCO2 57 H ABG pO2 85 ABG HCO3 25 ABG Total CO2 23 ABG O2 Saturation 96 ABG Base Excess -2 VBG pH VBG pCO2 VBG pO2 VBG HCO3 VBG Total CO2 VBG O2 Saturation VBG Base Excess VBG Lactate Sodium Potassium Chloride Carbon Dioxide Anion Gap BUN Creatinine Est GFR (CKD-EPI 2020) Glucose Calcium Magnesium Total Bilirubin AST ALT Alkaline Phosphatase Creatine Kinase Troponin I Total Protein Albumin Ur Random Sodium Salicylates Urine Opiates Screen Urine Methadone Screen Acetaminophen Ur Barbiturates Screen Ur Tricyclics Screen Ur Amphetamines Screen U Benzodiazepines Scrn Urine Cocaine Screen Ur THC Screen Ethyl Alcohol COVID-19 Source SARS-CoV-2 (PCR) MRSA (TEM-PCR) Review of Systems All systems reviewed & are unremarkable except as noted in HPI and below and Unobtainable due to endotracheal tube Time spent with patient Time spent in Critical Care: 60 Time spent in Critical care included: Chart review, Documenting critically ill care, Time at immediate bedside and Discussing critically ill care with other medical staff
[2023-02-27 07:02] LABS: ALT 672 U/L (16-63); AST 767 U/L (15-37); Albumin 2.9 g/dL (3.4-5.0); Alkaline Phosphatase 52 U/L (46-116); Anion Gap 7.5 mmol/L (3-11); BUN 17 mg/dL (7-18); Bilirubin, Total 0.6 mg/dL (0.2-1.0); CO2 27.5 mmol/L (21.0-32.0); Calcium 8.7 mg/dL (8.5-10.1); Chloride 107 mmol/L (98-107); Estimated GFR 101.28 (mL/min/1.73m2); Glucose 133 mg/dL (74-106); Potassium 3.8 mmol/L (3.5-5.1); Sodium 142 mmol/L (136-145); Total Protein 5.6 g/dL (6.4-8.2)
[2023-02-27] MEDS: Normal Saline Flush 10 ML SYR IVP (07:12)
[2023-02-27 09:09] LABS: HIV-1/2 Ag & Ab Screen Negative (Negative)
--- NOTE | 2023-02-27 11:02 | W.PM.DS.N ---
Date of service: 02/27/23 Time of Service: 11:54 DS: Diagnosis Discharge Diagnosis (1) Polysubstance overdose: Status: Acute Asessment and Plan: Patient presented after presumed methadone overdose though unsure if intentional or not. Initially required intubation for somnolence as well as acute hypoxic respiratory failure likely due to superimposed left sided aspiration PNA for which he was initially placed on usasyn. The patient was extubated on the morning of 02/27/2023 and was eventually on RA though remained mildly hypotensive with MAP <65. However, due to social issues at home the patient requested to leave AMA. He was prescribed 7 days of augmentin for his aspiration PNA. The risks of leaving AMA were explained to the patient, including worsening respiratory failure, severe hypotension and . He clearly stated that he understood the risks of leaving AMA. (2) Leukocytosis: Status: Acute (3) Polycythemia: Status: Acute (4) Acute respiratory failure with hypoxia and hypercapnia: Status: Acute (5) Increased anion gap metabolic acidosis: Status: Acute (6) Elevated CK: Status: Acute (7) Metabolic acidosis, normal anion gap (NAG): Status: Acute (8) Respiratory acidosis: Status: Acute (9) JOHNY (acute kidney injury): Status: Acute (10) Hyperglycemia: Status: Acute (11) Elevated LFTs: Status: Acute (12) Elevated troponin: Status: Acute (13) Prolonged QT interval: Status: Acute (14) Alcohol intoxication: Status: Acute (15) Aspiration pneumonia: Status: Acute (16) Hypotension: Status: Acute Discharge Plan Disposition Patient Disposition: Against Medical Advice Condition: Improving Discharge Details Reason For Visit: Altered mental status, acute hypoxic respiratory f Admit Date/Time: 02/26/23 09:59 Admit Provider: Johnson Carrillo Attending Provider: Johnson Carrillo Primary Care Provider: None,None Hospital Course Hospital Course: Patient presented after being found down s/p CPR and required intubation in ED for presumed methadone overdose and left sided aspiration pneumonia. He was extubated on the morning of 02/27/2023 and was able to be weaned to RA. However, his BP remained low with MAP in the low 60's though he was asymptomatic with ambulation. Due to ongoing issues at home with his children, the patient refused to remain hospitalized and left AMA. Home Meds and New Rx's Prescriptions: New amoxicillin-pot clavulanate 875-125 mg tablet 1 tab PO BID Qty: 14 0RF Discontinued amoxicillin-pot clavulanate [Augmentin] 875-125 mg tablet 1 tab PO BID Qty: 14 0RF Discharge Instructions Instructions: Aspiration Pneumonia (DC) Activity:: Activity as Tolerated Equipment/Supplies:: No Equipment Needed Diet:: As Tolerated Discharge Orders Discharge Orders: Discharge Order (Routine); Ordered 02/27/23 Ordered By: Tristen Hunt DS: Summary Time Spent with Patient providing and/or coordinating discharge services: Greater than 30 minutes Status at Discharge Functional status at discharge: independent ambulation Overall status at discharge: patient is not back to baseline Mental Status: mental status grossly normal Speech and Movement: speech and movement normal Mood: congruent mood and irritable mood Affect: anxious affect Exam Narrative Exam Narrative: Anxious appearing young gentleman pacing around the room, AOx4, heart RRR, course breath sounds throughout left lung field, clear on the right Psych Mental Status: mental status grossly normal Speech and Movement: speech and movement normal Mood: congruent mood and irritable mood Affect: anxious affect DS: Data Vitals/I&O Vitals and I&O: Vital Signs Temperature 99.1 F 02/27/23 07:20 Temperature Source Temporal Artery Scan 02/27/23 07:20 Pulse 54 L 02/27/23 09:44 Pulse 58 L 02/27/23 05:50 Respiratory Rate 14 02/27/23 09:44 Respiratory Effort Mechanically Ventilated 02/27/23 06:00 Respiratory Depth Normal 02/27/23 07:20 Respiratory Pattern Bradypnea 02/27/23 07:20 Blood Pressure 89/55 L 02/27/23 09:44 Blood Pressure Mean 80 02/27/23 05:00 Blood Pressure Position Supine 02/27/23 04:33 Pulse Oximetry 92 02/27/23 09:01 Respiratory End-tidal CO2 45 02/27/23 05:50 Oxygen Delivery Method Nasal Cannula 02/27/23 07:20 Oxygen Flow Rate 3 02/27/23 07:20 Fraction of Inspired Oxygen (FIO2) 30 02/27/23 07:20 Comment Norepi@5 02/27/23 05:00 Intake & Output 02/26/23 02/27/23 02/27/23 17:59 05:59 17:59 Intake Total 1390.922 / 2966.058 0497.524 / 3516.446 933.198 / 933.198 Output Total 600 / 600 20090 775 / 775 Balance 790.922 / 790.922 115.524 / 906.446 158.198 / 158.198 Weight 179 lb 14.355 oz 176 lb 5.917 oz Intake: IV 1390.922 / 9481.303 5330.524 / 3516.446 183.198 / 183.198 Oral 750 / 750 Output: Gastric Drainage 200 / 200 175 / 375 175 / 175 Oral 200 / 200 175 / 375 175 / 175 Urine 400 / 400 1835 / 2235 600 / 600 Other: Urine Color Yellow Light Francine Pale Yellow Urine Appearance Clear Clear Comment Gomes catheter intact and draining clear light francine urine. Gomes catheter patent gomes in place Gastric Occult Blood Oral Negative Data Completed and Pending Labs on day of discharge: Labs from last 24 hours 02/27/23 02/26/23 02/26/23 05:45 Unknown 20:10 WBC 17.32 H RBC 4.73 Hgb 14.3 D Hct 43.5 MCV 92 D MCH 30.2 MCHC 32.9 RDW 13.8 Plt Count 214 MPV 11.4 H Immature Gran % 0.6 Neutrophils % 74.2 Lymphocytes % 20.0 Monocytes % 4.8 Eosinophils % 0.2 Basophils % 0.2 Nucleated RBC % 0.0 Absolute Neutrophils 12.85 H Absolute Lymphocytes 3.46 H Absolute Monocytes 0.83 H Absolute Eosinophils 0.03 Absolute Basophils 0.03 ABG Sample Site Right Radial ABG pH 7.25 L ABG pCO2 57 H ABG pO2 85 ABG HCO3 25 ABG Total CO2 23 ABG O2 Saturation 96 ABG Base Excess -2 VBG pH VBG pCO2 VBG pO2 VBG HCO3 VBG Total CO2 VBG O2 Saturation VBG Base Excess VBG Lactate Sodium 142 Potassium 3.8 D 5.6 H Chloride 107 Carbon Dioxide 27.5 Anion Gap 7.5 BUN 17 Creatinine 1.0 Est GFR (CKD-EPI 2020) 101.28 Glucose 133 H Calcium 8.7 Total Bilirubin 0.6 AST 767 H ALT 672 H Alkaline Phosphatase 52 Creatine Kinase Troponin I Total Protein 5.6 L Albumin 2.9 L Ur Random Sodium Urine Opiates Screen Urine Methadone Screen Ur Barbiturates Screen Ur Tricyclics Screen Ur Amphetamines Screen U Benzodiazepines Scrn Urine Cocaine Screen Ur THC Screen SARS-CoV-2 (PCR) HIV 1&2 Ag/Ab, 4th Gen MRSA (TEM-PCR) 02/26/23 02/26/23 02/26/23 16:50 13:58 13:20 WBC RBC Hgb Hct MCV MCH MCHC RDW Plt Count MPV Immature Gran % Neutrophils % Lymphocytes % Monocytes % Eosinophils % Basophils % Nucleated RBC % Absolute Neutrophils Absolute Lymphocytes Absolute Monocytes Absolute Eosinophils Absolute Basophils ABG Sample Site ABG pH ABG pCO2 ABG pO2 ABG HCO3 ABG Total CO2 ABG O2 Saturation ABG Base Excess VBG pH 7.28 L VBG pCO2 57 H VBG pO2 55 VBG HCO3 27 VBG Total CO2 24 VBG O2 Saturation 88 VBG Base Excess 0 VBG Lactate 2.9 H* Sodium 137 Potassium 5.8 H D Chloride 104 Carbon Dioxide 25.8 Anion Gap 7.2 BUN 20 H Creatinine 1.1 Est GFR (CKD-EPI 2020) 90.34 Glucose 114 H Calcium 8.4 L Total Bilirubin AST ALT Alkaline Phosphatase Creatine Kinase 1667 H Troponin I 203 H* 200 H* Total Protein Albumin Ur Random Sodium 60 Urine Opiates Screen Urine Methadone Screen Ur Barbiturates Screen Ur Tricyclics Screen Ur Amphetamines Screen U Benzodiazepines Scrn Urine Cocaine Screen Ur THC Screen SARS-CoV-2 (PCR) HIV 1&2 Ag/Ab, 4th Gen MRSA (TEM-PCR) Negative 02/26/23 02/26/23 02/26/23 13:07 11:40 11:08 WBC RBC Hgb Hct MCV MCH MCHC RDW Plt Count MPV Immature Gran % Neutrophils % Lymphocytes % Monocytes % Eosinophils % Basophils % Nucleated RBC % Absolute Neutrophils Absolute Lymphocytes Absolute Monocytes Absolute Eosinophils Absolute Basophils ABG Sample Site ABG pH ABG pCO2 ABG pO2 ABG HCO3 ABG Total CO2 ABG O2 Saturation ABG Base Excess VBG pH Cancelled VBG pCO2 Cancelled VBG pO2 Cancelled VBG HCO3 Cancelled VBG Total CO2 Cancelled VBG O2 Saturation Cancelled VBG Base Excess Cancelled VBG Lactate Sodium Potassium Chloride Carbon Dioxide Anion Gap BUN Creatinine Est GFR (CKD-EPI 2020) Glucose Calcium Total Bilirubin AST ALT Alkaline Phosphatase Creatine Kinase Troponin I 140 H* Total Protein Albumin Ur Random Sodium Urine Opiates Screen Negative Urine Methadone Screen Positive A Ur Barbiturates Screen Negative Ur Tricyclics Screen Negative Ur Amphetamines Screen Negative U Benzodiazepines Scrn Negative Urine Cocaine Screen Negative Ur THC Screen Positive A SARS-CoV-2 (PCR) HIV 1&2 Ag/Ab, 4th Gen MRSA (TEM-PCR) 02/26/23 02/26/23 10:45 10:40 WBC RBC Hgb Hct MCV MCH MCHC RDW Plt Count MPV Immature Gran % Neutrophils % Lymphocytes % Monocytes % Eosinophils % Basophils % Nucleated RBC % Absolute Neutrophils Absolute Lymphocytes Absolute Monocytes Absolute Eosinophils Absolute Basophils ABG Sample Site ABG pH ABG pCO2 ABG pO2 ABG HCO3 ABG Total CO2 ABG O2 Saturation ABG Base Excess VBG pH VBG pCO2 VBG pO2 VBG HCO3 VBG Total CO2 VBG O2 Saturation VBG Base Excess VBG Lactate Sodium Potassium Chloride Carbon Dioxide Anion Gap BUN Creatinine Est GFR (CKD-EPI 2020) Glucose Calcium Total Bilirubin AST ALT Alkaline Phosphatase Creatine Kinase Troponin I Total Protein Albumin Ur Random Sodium Urine Opiates Screen Urine Methadone Screen Ur Barbiturates Screen Ur Tricyclics Screen Ur Amphetamines Screen U Benzodiazepines Scrn Urine Cocaine Screen Ur THC Screen SARS-CoV-2 (PCR) Negative HIV 1&2 Ag/Ab, 4th Gen Negative MRSA (TEM-PCR) 02/26/23 15:00 Sputum Sputum Culture - Pending Preliminary micro results at discharge 02/26/23 15:00 Sputum Culture - Pending Sputum PFSH All Active Problems (Updated 02/26/23 @ 18:17 by Johnson Carrillo MD) Elevated CK (Acute) Hypotension (Acute) Aspiration pneumonia (Acute) Alcohol intoxication (Acute) Prolonged QT interval (Acute) Elevated troponin (Acute) Elevated LFTs (Acute) Hyperglycemia (Acute) JOHNY (acute kidney injury) (Acute) Respiratory acidosis (Acute) Metabolic acidosis, normal anion gap (NAG) (Acute) Increased anion gap metabolic acidosis (Acute) Acute respiratory failure with hypoxia and hypercapnia (Acute) Polycythemia (Acute) Leukocytosis (Acute) Polysubstance overdose (Acute) Acute left otitis media (Acute) Pharyngitis (Acute) Pilonidal cyst (Acute) Social History Smoking/Tobacco Use Status: Current every day Tobacco Type: cigarettes Smoking risk assessment performed?: Yes Alcohol Intake: current Alcohol Intake frequency: 3 or more drinks per day Alcohol type: beer Drug use: Never Do you feel safe at home: Yes Do you feel safe in your relationship?: Yes Time Spent with Patient Time Spent with Patient: <45 minutes (35min) Time was spent: preparing to see the patient(eg.review tests), obtaining and/or reviewing separately otained hiistory, referring, communicating with other health plant health care technician, indepentently interpreting results, counseling the patient and care coordination
[2023-02-27 11:14] LABS: Hepatitis A Antibody IgM Negative (Negative); Hepatitis B Core Antibody Negative (Negative); Hepatitis B surface Ag Negative (Negative); Hepatitis C Ab w Rflx HCV PCR Negative (Negative)
== END 2023-02-27 10:08 | disposition left against medical advice (07) | DRG 917 ==
LOC: ER 10:39 → ICU 11:59
PROVIDERS: Student in an Organized Health Care Education/Training Program; Admitting Provider Family Medicine; Emergency Provider Student in an Organized Health Care Education/Training Program; Visit Provider Family Medicine
DX: T40.3X1A Poisoning by methadone, accidental (unintentional), initial encounter (principal); J69.0 Pneumonitis due to inhalation of food and vomit; J96.02 Acute respiratory failure with hypercapnia; J96.01 Acute respiratory failure with hypoxia; K72.00 Acute and subacute hepatic failure without coma; N17.9 Acute kidney failure, unspecified; E87.4 Mixed disorder of acid-base balance; R74.8 Abnormal levels of other serum enzymes; F10.129 Alcohol abuse with intoxication, unspecified; I95.2 Hypotension due to drugs; R94.31 Abnormal electrocardiogram [ECG] [EKG]; R73.9 Hyperglycemia, unspecified; D75.1 Secondary polycythemia; D72.829 Elevated white blood cell count, unspecified; F17.210 Nicotine dependence, cigarettes, uncomplicated
CPT/HCPCS: 00123; 31500; 36415; 36556; 36591; 71250; 80048; 80053; 80307; 82550; 82805; 86704; 86709; 86803; 87340; 87389; 87635; 87641; 93005; 93308; 96361; 96372; 96374; 96375; 99291; J1650; 36600; 70450; 71045; 72125; 74176; 80320; 80329; 83605; 83735; 84132; 84300; 84484; 85025; 87070; 87205; 93010; 94002; 94003; 94667; 99239; 99292; J0131; J0295; J1885; J2250; J3490

== ENCOUNTER 2023-07-23 10:43 | Emergency (ER) | payer BC, SELFPAY ==
[2023-07-23 10:47] VITALS: BP 151/101; PULSE 91; RESP 16; TEMP 36.4; O2SAT 99
--- NOTE | 2023-07-23 10:49 | ED.GENADUL_ITS ---
Discharge Plan Disposition Patient Disposition: Home Discharge Details Clinical Impression: Nausea & vomiting, Proteinuria, Blood pressure elevated without history of HTN Primary Care Provider: Unknown,Unknown ED Provider: Rivera Saldana Home Meds and New Rx's Prescriptions: New ondansetron 4 mg tablet,disintegrating 4 mg PO BID 5 Days Qty: 10 0RF Discharge Instructions Instructions: Acute Nausea and Vomiting (ED) Additional Instructions: You were seen in the emergency department for your nausea and vomiting. Your kidneys are working well. Your urinalysis showed no sign of urinary tract infection. Please return to the emergency department if develop nausea or vomiting that does not stop or abdominal pain. A prescription for nausea medicine has been sent to your pharmacy. Stand Alone Forms: Work Release Discharge Data Discharge Date/Time-TO BE ENTERED AT DEPARTURE: 07/23/23 13:11 HPI General Date/Time Provider Initiated Documentation: 07/23/23 10:49 . HPI Narrative: MDM This is an overall very well-appearing normothermic and afebrile 32-year-old male with nausea vomiting in setting of cannabinoid use concerning for the possibility of cannabinoid hyperemesis syndrome in the setting of his reassuring exam. Specifically the patient has no abdominal pain to suggest intra-abdominal infection. No right lower quadrant tenderness to suggest appendicitis. No diarrhea nor left lower quadrant tenderness to suggest diverticulitis. No pain out of proportion to suggest necrotizing soft tissue infection. Patient does note that his pain improves at home when he is able to take hot showers. Based on the patient's age my suspicion was low for mesenteric ischemia as he lacks vascular risk factors. No epigastric tenderness nor routine ethanol to suggest pancreatitis. I considered sexually transmitted infections however the patient denies any abnormal urethral discharge. He is not having any penile nor testicular pain that he is circumcised. Furthermore he has been sexually active with a single female partner for multiple years. He is not concerned about sexually transmitted infections. Concerning his back pain I am reassured against dangerous etiologies. Specifically I considered cauda equina however patient lacks saddle anesthesia and has not lost control of his bowels nor bladder. I considered spinal epidural abscess however the patient has not had fevers. I considered spinal epidural hematoma however the patient is not anticoagulated and has not had any recent spinal instrumentation. I considered pyelonephritis however in the absence of dysuria frequency and fevers and felt that pyelonephritis was low on the differential. Patient has had no trauma to his so has resolved my suspicion for fracture is low. I considered pathological fracture however the patient lacks history of malignancy I do not feel that she required a CT scan. No rash to back to suggest zoster. Patient also endorsed a headache but this is not sudden onset so my suspicion is low for subarachnoid hemorrhage. No weakness and patient lacks vascular risk factors so my suspicion is low for CVA. No neck pain or fevers to suggest meningitis. No generator exposure to suggest carbon dioxide toxicity. No recent chiropractic manipulation or neck pain to suggest cervical arterial dissection. No recent URI symptoms so doubt subdural empyema. No chest pain to suggest esophageal rupture. 12:15 PM Comprehensive metabolic panel showing no JOHNY. Mild hyperglycemia and mild gap acidosis but normal bicarbonate??not consistent with DKA. Mild hypercalcemia. No significant LFT abnormalities. CBC showing leukocytosis but no anemia. No thrombocytopenia. 12:52 PM Urinalysis showing proteinuria and glucosuria but nitrite negative and leukoesterase negative??not consistent with UTI. Patient had an elevated blood pressure and given his proteinuria I am concerned for the possibility of longstanding hypertension. He is not markedly volume overloaded to suggest acute renal failure and he is making urine so I do not feel he requires an emergent nephrology consult. Furthermore he does not have anasarca nor any significant swelling. Given no dysuria no frequency no fevers my suspicion is low for pyelonephritis. I did ask health nurse staff community health [facility] to have the patient seen next week by his primary care provider. Patient and I discussed return to the ED for any abdominal pain any loss of bowel or bladder control or any nausea or vomiting that did not stop. I wrote him for a short course of ondansetron. Chronic conditions affecting the care of the patient: N/A History obtained from an outside historian: N/A External record review: No [facility] [place] Medications: Droperidol ketorolac Social determinants of health affecting disposition: N/A Management discussed with: N/A Treatment/interventions considered: N/A Response to therapies provided: Improved symptoms in the ED HPI This is a previously healthy 32-year-old male with prior history of polysubstance overdose requiring intubation and hospitalization last year now arrived to the emergency department with multiple complaints. Patient complains of nausea and vomiting. He reports that he smokes marijuana every day in the setting of anxiety. He also vapes tobacco. He reports he is not having abdominal pain but has generalized nausea. He reports that tobacco and marijuana use help with his vomiting. He is not having any chest pain. He reports he last vomited earlier this morning. He has been able to tolerate water subsequently but feels nauseous at the moment. He reports that hot showers improve his nausea and vomiting. He reports that he used to drink 1 tall boy beer per day but he has not done this in the past several weeks his results was nausea or vomiting. He endorses that he has had occasional difficulty urinating and that he has been best able to urinate in the shower. He is circumcised and denies penile pain testicular pain and any abnormal urethral discharge. He is sexually active with a single female partner and does not use protection. He is not concerned about the possibility of sexually transmitted infection. He also endorses bilateral lumbar spinal pain. He says that this has been ongoing for the past approximately 3 to 4 weeks. He denies any specific trauma. He has not had any fevers. His pain is not connected to his abdominal pain. He has not noticed any rashes back. He has not taken any falls. He has not had any loss of bowel or bladder control. No recent spinal surgeries. He denies IV drug use and is not anticoagulated. He has never had a sexually-transmitted infection in the past. He is never had any recent surgeries to his back. He denies any saddle anesthesia. Exam General: Well-appearing in no acute distress speaking in complete sentences. Head: Normocephalic, atraumatic. Eye: Extraocular eye movements intact. No conjunctival injection. No scleral icterus. Ear, nose, mouth, throat: Grossly normal inspection. Normal voice, handling secretions normally. Neck: Trachea midline. Cardiovascular: Well-perfused distal extremities. Respiratory: Nonlabored respiration. Regular rate and rhythm. Gastrointestinal: Nondistended abdomen. Soft nontender. No rebound. No guarding. Musculoskeletal: No edema. Moving all 4 extremities spontaneously. No hyperreflexia. No clonus. 5 out of 5 bilateral lower extremity strength. Bilateral feet warm well-perfused. Skin: Normal for age and race, grossly normal temperature and turgor. No acute rash. Neurologic: Alert and appropriate, no apparent acute deficits. Psychiatric: Mood and manner are appropriate. Grooming and personal hygiene are appropriate. Related Data Home Medications Medication Instructions Recorded Confirmed ondansetron 4 mg disintegrating 4 mg PO BID 5 days #10 tabs 07/23/23 tablet Previous Rx's Medication Instructions Recorded ondansetron 4 mg disintegrating 4 mg PO BID 5 days #10 tabs 07/23/23 tablet Allergies Allergy/AdvReac Type Severity Reaction Status Date / Time some metals AdvReac Mild Skin Rash Uncoded 10/20/19 12:37 General CHUY: 2 Medical Decision Making Quality:SDOH Health Related Social Needs: No Data to Display PFSH All Active Problems (Updated 07/23/23 @ 13:20 by Rivera Saldana MD) Blood pressure elevated without history of HTN (Acute) Proteinuria (Acute) Nausea & vomiting (Acute) Hypotension (Acute) Aspiration pneumonia (Acute) Elevated LFTs (Acute) Polycythemia (Acute) Leukocytosis (Acute) Polysubstance overdose (Acute) Acute left otitis media (Acute) Pharyngitis (Acute) Pilonidal cyst (Acute) Surgical History (Updated 07/07/23 @ 09:50 by Lala Ventura) History of ankle surgery Family History (Updated 07/07/23 @ 09:50 by Lala Ventura) Mother Alcohol use disorder Substance use disorder Paternal Grandfather Heart disease Social History (Updated 07/07/23 @ 09:49 by Lala Ventura) Smoking/Tobacco Use Status: Current every day Tobacco Type: cigarettes and e- cigarettes Quit status: has quit before Smoking risk assessment performed?: Yes Alcohol Intake: current Alcohol Intake frequency: 0-2 drinks per day Alcohol type: beer Drug use: Daily Substance use type: marijuana Adopted: Yes Caregiver/Support person: No Foster care: No Household members: children Housing: apartment Number of Children: 2 number of grandchildren: 0 Communication Needs: None Education Level: high school 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 [employer] Pets and animals: No Sexually active: Yes Do you think of yourself as: straight/heterosexual What is your relationship status?: How often do you talk on the phone with friends or family?: three or more times per week How often do you get together with friends or relatives?: three or more times per week Do you belong to any clubs or organized social groups?: no Panel score (0-1 are the most socially isolated patients): 1 What type of physical activity do you participate in: none Lana/Caodaism: None Special lana needs: No Seatbelt use: never Helmet use: No Drive intox or ride w/intox funeral 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
[2023-07-23] MEDS: Droperidol 5 MG/2 ML VIAL 2.5 MG IVP (11:30)
[2023-07-23] MEDS: Normal Saline 1,000 ML 1000 ML IV (11:30)
[2023-07-23 11:35] LABS: Abs Immature Grans 0.04 10^3/uL (0.0-0.06); Absolute Basophil Count 0.05 10^3/uL (0.0-0.2); Absolute Eosinophil Count 0.04 10^3/uL (0.0-0.7); Absolute Monocyte Count 0.57 10^3/uL (0.1-0.8); Basophils % 0.4; Eosinophils % 0.3; HCT 50.9 % (40.0-50.0); HGB 17.4 g/dL (13.5-17.5); Immature Grans % 0.3; Lymphocytes % 20.5; MCHC 34.2 % (32.0-36.0); MCV 91 fL (80-95); MPV 10.7 fL (8.0-11.0); Monocytes % 4.7; Neutrophils % 73.8; Platelet Count 281 10^3/uL (130-400); RBC 5.61 10^6/uL (4.36-5.78); RDW 12.6 % (11.8-14.1); RDW-SD 42.1 fL
[2023-07-23 11:56] LABS: ALT 17 U/L (16-63); AST 19 U/L (15-37); Albumin 4.7 g/dL (3.4-5.0); Alkaline Phosphatase 70 U/L (46-116); Anion Gap 13.3 mmol/L (3-11); BUN 13 mg/dL (7-18); Bilirubin, Total 0.9 mg/dL (0.2-1.0); CO2 27.7 mmol/L (21.0-32.0); CREATININE 1.1 mg/dL (0.70-1.30); Calcium 10.5 mg/dL (8.5-10.1); Chloride 100 mmol/L (98-107); Estimated GFR 90.34 (mL/min/1.73m2); Glucose 179 mg/dL (74-106); Potassium 3.7 mmol/L (3.5-5.1); Sodium 141 mmol/L (136-145); Total Protein 8.9 g/dL (6.4-8.2)
[2023-07-23] MEDS: Ketorolac 15 MG/ML VIAL IVP (12:36)
[2023-07-23 12:49] LABS: Bilirubin Small (Negative); Blood Negative (Negative); Clarity Clear (Clear); Glucose 100 mg/dL (Negative); Ketones 15 mg/dL (Negative); Leukocyte Esterase Negative (Negative); Nitrite Negative (Negative)
[2023-07-23 12:54] LABS: Bacteria Negative HPF (Negative); Crystals Negative HPF (Negative); Epithelial Cells Rare HPF (Negative); Mucus Moderate (Negative); RBC Negative HPF (0-2); WBC Negative HPF (0-5)
[2023-07-23 12:55] LABS: C & S Indicated? No; Casts 0-2 Hyaline LPF (Negative)
--- NOTE | 2023-07-23 13:23 | NUR.NOTE ---
Referral given to [employer] to help facilitate Establishing a Primary Care Provider for follow up to Ele[facility]ated Care and Protein in Urine some time next week
== END 2023-07-23 13:11 | disposition home or self-care (01) ==
LOC: ER 13:30
PROVIDERS: Emergency Provider Emergency Medicine
DX: R11.2 Nausea with vomiting, unspecified (principal); R80.9 Proteinuria, unspecified; R03.0 Elevated blood-pressure reading, without diagnosis of hypertension; F17.290 Nicotine dependence, other tobacco product, uncomplicated; F17.210 Nicotine dependence, cigarettes, uncomplicated
CPT/HCPCS: 80053; 96361; 96374; 96375; 99284; 81003; 81015; 85025; J1790; J1885

== ENCOUNTER → 2023-07-28 04:10 | Outpatient (CLI) | payer BC, SELFPAY ==
--- NOTE | 2023-07-28 06:45 | DI.US_ITS ---
Exam(s) US ABDOMEN EXAM: US ABDOMEN CLINICAL HISTORY: Elevated WBC,persistent N/V,r11.2 TECHNIQUE: Ultrasound of complete upper abdomen performed using standard protocol. COMPARISON: US POCUS EXAM from 02/26/2023 FINDINGS: There is no ascites evident. LIVER: There are no hepatic lesions evident nor obvious dilatation of intrahepatic ducts. GALLBLADDER/BILIARY: There are no gallstones. No gallbladder wall edema nor pericholecystic fluid. The common hepatic duct isnot dilated, measuring 2mm at the level of louann hepatis. PANCREAS: There is no evidence of pancreatic mass nor dilatation of the pancreatic duct. SPLEEN: The spleen is not enlarged and there are no intrasplenic lesions evident. KIDNEYS:Kidneys exhibit normal size with no evidence of solid mass, calculus, nor hydronephrosis. No cortical cysts evident. ABDOMINAL AORTA: There is no evidence of abdominal aortic aneurysm. IVC: Normal diameter where visualized. IMPRESSION: 1. No evidence of cholelithiasis nor dilatation of the biliary tree. 2. No other significant ultrasound findings in the upper abdomen. 3. There is no ascites. DATA REPOSITORY:
--- NOTE | 2023-07-28 06:45 | DI.RAD_ITS ---
Exam(s) XR LUMBAR SPINE COMPLETE EXAM: XR LUMBAR SPINE COMPLETE CLINICAL HISTORY: back pain, ? osteomyelitis,M54.9. TECHNIQUE: 2D digital imaging was performed. COMPARISON: No exams were available for comparison FINDINGS: Five views. Is transitional anatomy. No evidence of fracture, listhesis, nor significant disc space narrowing. Facet joints unremarkable. Bone density normal. No osseous lesions. No scoliosis. SI joints unrem arkable. IMPRESSION: No acute osseous findings in the lumbosacral spinal column. DATA REPOSITORY: RADIATION DOSE DELIVERED:
--- NOTE | 2023-07-28 06:45 | DI.RAD_ITS ---
Exam(s) XR THORACIC SPINE COMPLETE EXAM: XR THORACIC SPINE COMPLETE CLINICAL HISTORY: back pain, ? osteomyelitis. TECHNIQUE: 2D digital imaging was performed. COMPARISON: CR XR LUMBAR SPINE COMPLETE from 07/28/2023 FINDINGS: 3 views No evidence of fracture, listhesis, nor disc space narrowing. Bone density normal. No osseous lesio ns. No abnormal widening of the paraspinal lines. There is no significant scoliosis. IMPRESSION: No significant radiographic findings on these images of the thoracic spinal column. DATA REPOSITORY: RADIATION DOSE DELIVERED:
== END ==
PROVIDERS: PCP Family Medicine; Visit Provider Family Medicine
DX: M54.6 Pain in thoracic spine (principal); M54.59 Other low back pain; R11.2 Nausea with vomiting, unspecified; D72.829 Elevated white blood cell count, unspecified
CPT/HCPCS: 72072; 72110; 76700

== ENCOUNTER 2024-06-23 13:23 | Emergency (ER) | payer OTHER, SELFPAY ==
[2024-06-23 13:56] VITALS: BP 124/77; PULSE 80; RESP 16; TEMP 37; O2SAT 94
--- NOTE | 2024-06-23 14:06 | W.ED.GENAD ---
Discharge Plan Disposition Patient Disposition: Home Condition: Stable Discharge Details Clinical Impression: Crushing injury of left hand Primary Care Provider: Lang Lr ED Provider: Gini Hernández Discharge Instructions Instructions: Crush Injury (DC) Additional Instructions: You were seen in the emergency department today for evaluation of a crush injury to your left hand. In our department you do full physical examination performed, and had an x-ray that did not show any broken bones. You likely have soft tissue swelling and injury, and had a dressing placed over the cut on your hand, which did not require stitches. I provided you with a splint to that you can wear for support as needed, and you should continue to use Tylenol and ibuprofen for pain and ice and elevation for swelling. Please follow-up with your primary care provider in the next few days to discuss this injury and any symptoms that change, worsen, or persist. Thank you for allowing us to be part of your care. Stand Alone Forms: Work Release HPI General Mode of arrival: ambulatory. Date/Time Provider Initiated Documentation: 06/23/24 14:05. Limitations to Documentation: no limitations. Information obtained by: patient and old records reviewed. HPI Narrative: HPI: This is a 33-year-old male patient without significant past medical history is presenting for evaluation of a crush injury to the left hand. 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 This happened approximately 20 minutes prior to his arrival at the emergency department. He does not recall when his last tetanus shot was, did not take any medications for pain. Was in his normal state of health prior to this event and did not injure any other part of his body. The patient has a small laceration/abrasion and swelling over the thenar aspect of the left hand. States that he has some numbness and tingling to the distal aspect of his thumb and pointer finger. He is right-hand dominant. Exam: Gen: Awake and alert, in no apparent distress HEENT: Non-icteric sclera Neck: Supple Lungs: No apparent respiratory distress, normal respiratory effort. CV: Appears well perfused Abdomen: Non-distended MSK: Moves 4 extremities without apparent limitation in ROM the patient has swelling and pain over the thenar aspect of the left hand, does have full range of motion against resistance at the DIPs, movement of the hand deferred prior to imaging. A well-approximated 2 cm laceration is appreciated over the thenar aspect. The patient has preserved deep sensation to the hand and fingertips, endorses some tingling. Brisk capillary refill distal to this injury, no active bleeding. Skin: Visualized skin without rashes, cyanosis. Neuro: Normal Gait, no obvious focal deficits or facial asymmetry. Speaks in full, clear sentences. Psych: Appropriate for situation. MDM: This is a 33-year-old male patient presenting for crush injury of the hand. Differential includes but is not limited to fracture, dislocation, contusion, certainly considered ligamentous injury and neurovascular derangement though this is less consistent with my history and physical examination. We will obtain an x-ray and provide the patient with a tetanus booster. He is not desiring of any medications for management of pain. ED Course: I reviewed the patient's x-ray, which does not show any fractures, dislocations or other osseous abnormalities. No foreign bodies, I was able to clean the wound, and the laceration is very superficial and well approximating and will not require sutures. I did dress the area with gauze and bacitracin. On evaluation the swelling over the thenar aspect is the only traumatic finding, the patient has no anatomical snuffbox tenderness which would warrant ongoing or further evaluation for occult scaphoid fracture. I did provide the patient with a thumb spica splint for support given that he has a very physically demanding job, and provided him with a work note. He will follow-up with his primary care provider for reevaluation and to use conservative management such as Tylenol, ibuprofen, ice and elevation for his injury. At this time, the patient has had a full medical evaluation and is safe for discharge to home. They are hemodynamically stable, ambulatory, and tolerating PO. They are understanding of the follow-up plan and return precautions. They left our facility without incident. Gini Hernández MD Related Data Allergies Allergy/AdvReac Type Severity Reaction Status Date / Time some metals AdvReac Mild Skin Rash Uncoded 06/23/24 13:55 General Stated Complaint: Orthopedic CHUY: 3 Course Vital Signs Vital signs: Vital Signs Temperature 37 C 06/23/24 13:56 Pulse 80 06/23/24 13:56 Respiratory Rate 16 06/23/24 13:56 Blood Pressure 124/77 06/23/24 13:56 Pulse Oximetry 94 06/23/24 13:56 Temperature 37 C 06/23/24 13:56 Temperature Source Tympanic 06/23/24 13:56 Pulse 80 06/23/24 13:56 Respiratory Rate 16 06/23/24 13:56 Blood Pressure 124/77 06/23/24 13:56 Blood Pressure Position Sitting 06/23/24 13:56 Pulse Oximetry 94 06/23/24 13:56 Oxygen Delivery Method Room Air 06/23/24 13:56 Oxygen Flow Rate 0 06/23/24 13:56 Pain Level 0 06/23/24 14:03 Medical Decision Making Quality:SDOH Health Related Social Needs: Health related social needs details noted PFSH All Active Problems (Updated 06/23/24 @ 15:39 by Gini Hernández MD) Crushing injury of left hand (Acute) Back pain (Acute) Hypotension (Acute) Aspiration pneumonia (Acute) Elevated LFTs (Acute) Polycythemia (Acute) Leukocytosis (Acute) Polysubstance overdose (Acute) Acute left otitis media (Acute) Pharyngitis (Acute) Pilonidal cyst (Acute) Surgical History (Updated 07/07/23 @ 09:50 by Lala Ventura) History of ankle surgery Family History (Updated 07/07/23 @ 09:50 by Lala Ventura) Mother Alcohol use disorder Substance use disorder Paternal Grandfather Heart disease Social History (Updated 07/07/23 @ 09:49 by Lala Ventura) Smoking/Tobacco Use Status: Current every day Tobacco Type: cigarettes and e-cigarettes Quit status: has quit before Smoking risk assessment performed?: Yes Alcohol Intake: current Alcohol Intake frequency: 0-2 drinks per day Alcohol type: beer Drug use: Daily Substance use type: marijuana Adopted: Yes Caregiver/Support person: No Foster care: No Household members: children Housing: apartment Number of Children: 2 number of grandchildren: 0 Communication Needs: None Education Level: high school 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 Pets and animals: No Sexually active: Yes Do you think of yourself as: straight/heterosexual What is your relationship status?: How often do you talk on the phone with friends or family?: three or more times per week How often do you get together with friends or relatives?: three or more times per week Do you belong to any clubs or organized social groups?: no Panel score (0-1 are the most socially isolated patients): 1 What type of physical activity do you participate in: none Lana/Tenriism: None Special lana needs: No Seatbelt use: never Helmet use: No Drive intox or ride w/intox regional company truck 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
--- NOTE | 2024-06-23 14:48 | DI.RAD_ITS ---
Exam(s) XR HAND LT COMPLETE EXAM: XR HAND LT COMPLETE CLINICAL HISTORY: crushed in hydraulic press. TECHNIQUE: 2D digital imaging was performed. Three views. COMPARISON: No exams were available for comparison FINDINGS: BONES: No acute fracture is present. No bony destructive lesion is seen. JOINTS: No dislocation present. SOFT TISSUE: Normal. IMPRESSION: Unremarkable radiographs of the left hand. DATA REPOSITORY: RADIATION DOSE DELIVERED:
[2024-06-23] MEDS: Diph,Pertuss(Acell),Tet Vac/Pf 0.5 ML SYR IM (15:45)
== END 2024-06-23 15:50 | disposition home or self-care (01) ==
PROVIDERS: Emergency Provider Emergency Medicine; PCP Family Medicine
DX: S67.22XA Crushing injury of left hand, initial encounter (principal); S61.412A Laceration without foreign body of left hand, initial encounter; R20.0 Anesthesia of skin; F17.210 Nicotine dependence, cigarettes, uncomplicated; F17.290 Nicotine dependence, other tobacco product, uncomplicated; Z23 Encounter for immunization
CPT/HCPCS: 90471; 90715; 99283; 73130

== ENCOUNTER 2024-09-14 16:01 | Emergency (ER) | payer BC, SELFPAY ==
--- NOTE | 2024-09-14 16:00 | DI.RAD_ITS ---
Exam(s) XR FINGER LT RING EXAM: XR FINGER LT RING CLINICAL HISTORY: L ring finger injury, bruising. TECHNIQUE: 2D digital imaging was performed. Three views. COMPARISON: 23 June 2024 FINDINGS: BONES: There is a nondisplaced fracture at the ulnar corner of the base of the distal phalanx of the ring finger. There is no significant involvement of the articular surface. No additional fractures a re seen. No bony destructive lesion is seen. JOINTS: No dislocation present. SOFT TISSUE: Normal. IMPRESSION: Nondisplaced fracture at the base of the distal phalanx. DATA REPOSITORY: RADIATION DOSE DELIVERED:
[2024-09-14 16:06] VITALS: BP 152/83; PULSE 91; RESP 16; TEMP 37; O2SAT 99
--- NOTE | 2024-09-14 17:33 | W.ED.GENAD ---
Discharge Plan Disposition Patient Disposition: Home Condition: Stable Discharge Details Clinical Impression: Closed fracture of phalanx of left ring finger Primary Care Provider: Lang Lr ED Provider: Indio Chapman Home Meds and New Rx's Prescriptions: No Action No Known Home Meds Discharge Instructions Instructions: Finger Fracture ED Additional Instructions: You were seen in the emergency department for the small fracture of the distal phalanx of your left ring finger. This will heal in about 6 weeks. Please use the splint as needed to remind yourself to immobilize is much as possible. Please use therapeutic dosing of Tylenol (acetamenophen) & Advil (ibuprofen) in an alternating fashion as follows: Take 1000mg of Tylenol every 6 hours without missing doses- that is 4 times per day. [place] in between the Tylenol dosings, take 400-600mg of Advil also on a 6 hour schedule, that is also 4 times per day. The daily maximum dosing of Tylenol is 4000mg, and the daily maximum dosing of Advil is 2400mg. This is safe to do for weeks. Please note that some common cold medications & prescription pain medications may contain acetamenophen and you need to read OTC drug labels and factor that in to maximum daily dosings. If you have persistent pain or range of motion deficits please follow-up with orthopedics. Referrals: Lang Lr DO [Primary Care Provider] - Discharge Data Discharge Date/Time-TO BE ENTERED AT DEPARTURE: 09/14/24 18:09 HPI General Date/Time Provider Initiated Documentation: 09/14/24 16:09. HPI Narrative: 33 year-old male presents to ED today by POV/ambulating with a chief complaint of L 4th finger pain- accidentally hit his finger with a drill with onset earlier today- patient is R-hand dominant. Quality described as pain with certain movements, no radiation to numbness, tingling, swelling, redness, open lesion, or range of motion deficit, endorses mild bruising. Severity is described as moderate. Palliating factors include nothing specific. Provoking factors include nothing specific. Patient not anticoagulated. Related Data Home Medications ?Medication ?Instructions ?Recorded ?Confirmed Unknown [No Known Home Meds] 09/14/24 09/14/24 Allergies Allergy/AdvReac Type Severity Reaction Status Date / Time some metals AdvReac Mild Skin Rash Uncoded 06/23/24 13:55 General Stated Complaint: Orthopedic CHUY: 4 Review of Systems All systems reviewed & are unremarkable except as noted in HPI and below Exam Narrative Exam Narrative: GENERAL APPEARANCE: Well-nourished, non-toxic, awake and alert, atraumatic, no acute distress. SKIN: Warm, pink, dry, intact, without rashes/lesions/ulcerations. HEAD: Normocephalic, atraumatic, normal hair distribution for gender/age. EYES: Normal conjunctiva, no exudates on lids/lashes. ENT: Nares patent, no circumoral cyanosis, no facial swelling NECK: Supple, trachea midline, painless cervical ROM. LUNGS/CHEST: Non-labored respirations, normal A/P diameter, symmetrical expansion, no chest wall deformity HEART (CV/PV): Regular rate, no peripheral edema, no JVD. ABDOMEN: Soft, non-distended, no guarding. MSK: Normal ROM, no swelling/deformity to bilateral UEs or LEs, moving all extremities without weakness, no cyanosis, spine midline without tenderness, normal curvature, left ring finger mild bruising, no range of motion deficit, sensation intact, brisk capillary refill, no crepitus, left radial pulse 2+, no anatomical snuffbox tenderness NEURO: Mental Status AAOx4 - alert to person, place, time, events No facial droop, no forehead involvement. Motor: No focal weakness - strength 5/5 in bilateral UEs and LEs, proximal and distal, symmetric. Sensory: sensation intact to light touch globally. Gait normal: patient ambulated without ataxia into ED room. PSYCH: euthymic, cooperative, pleasant, appropriate speech Course Vital Signs Vital signs: Vital Signs Temperature 37.0 C 09/14/24 16:06 Pulse 91 H 09/14/24 16:06 Respiratory Rate 16 09/14/24 16:06 Blood Pressure 152/83 H 09/14/24 16:06 Pulse Oximetry 99 09/14/24 16:06 Temperature 37.0 C 09/14/24 16:06 Temperature Source Temporal Artery Scan 09/14/24 16:06 Pulse 91 H 09/14/24 16:06 Respiratory Rate 16 09/14/24 16:06 Blood Pressure 152/83 H 09/14/24 16:06 Blood Pressure Position Sitting 09/14/24 16:06 Pulse Oximetry 99 09/14/24 16:06 Oxygen Delivery Method Room Air 09/14/24 16:06 Oxygen Flow Rate 0 09/14/24 16:06 Pain Level 0 09/14/24 16:34 Medical Decision Making This dictation utilizes [id number] dictation software and may contain unedited grammatical errors. 33 year-old male presents to ED today by POV/ambulating with a chief complaint of L 4th finger pain- accidentally hit his finger with a drill with onset earlier today- patient is R-hand dominant. Quality described as pain with certain movements, no radiation to numbness, tingling, swelling, redness, open lesion, or range of motion deficit, endorses mild bruising. Severity is described as moderate. Palliating factors include nothing specific. Provoking factors include nothing specific. Patients' medical history: Noncontributory. Family and social history: Noncontributory. Pertinent exam findings / vital signs include left ring finger mild bruising, no range of motion deficit, sensation intact, brisk capillary refill, no crepitus, left radial pulse 2+, no anatomical snuffbox tenderness. Differential / pathologies of concern include fracture, contusion. Diagnostic studies of: -XR L ring finger-shows small nondisplaced fracture at the distal phalanx. Interventions of: -Finger splint supplied. ED Course/Assessment/Plan: 33-year-old male presents with a minor injury from hitting his left ring finger with a power drill, he has mild bruising and a nondisplaced fracture, provided a splint recommend RICE therapy, keeping it immobilized and following up with his primary care orthopedics as needed, strict return criteria for signs of neurovascular compromise. Findings not consistent with neurovascular compromise or unstable fracture. Disposition of closed fracture of phalanx of left ring finger. Patient verbalized understanding of the plan and return to ED criteria and engaged in shared decision making. Medical Records Medical records reviewed: Yes I reviewed the patient's medical records. Imaging Data Radiologic Study: Attestation: I personally reviewed and interpreted this imaging study as follows: Imaging: X-Ray Radiologist's impression: EXAM: XR FINGER LT RING CLINICAL HISTORY: L ring finger injury, bruising. TECHNIQUE: 2D digital imaging was performed. Three views. COMPARISON: 23 June 2024 FINDINGS: BONES: There is a nondisplaced fracture at the ulnar corner of the base of the distal phalanx of the ring finger. There is no significant involvement of the articular surface. No additional fractures are seen. No bony destructive lesion is seen. JOINTS: No dislocation present. SOFT TISSUE: Normal. IMPRESSION: Nondisplaced fracture at the base of the distal phalanx. Quality:SDOH Health Related Social Needs: Health related social needs details noted PFSH All Active Problems (Updated 09/14/24 @ 17:36 by AMBER Staples) Closed fracture of phalanx of left ring finger (Acute) Back pain (Acute) Hypotension (Acute) Aspiration pneumonia (Acute) Elevated LFTs (Acute) Polycythemia (Acute) Leukocytosis (Acute) Polysubstance overdose (Acute) Acute left otitis media (Acute) Pharyngitis (Acute) Pilonidal cyst (Acute) Surgical History (Updated 07/07/23 @ 09:50 by Lala Ventura) History of ankle surgery Family History (Updated 07/07/23 @ 09:50 by Lala Ventura) Mother Alcohol use disorder Substance use disorder Paternal Grandfather Heart disease Social History (Updated 07/07/23 @ 09:49 by Lala Ventura) Smoking/Tobacco Use Status: Current every day Tobacco Type: cigarettes and e-cigarettes Quit status: has quit before Smoking risk assessment performed?: Yes Alcohol Intake: former Drug use: Daily Substance use type: marijuana Adopted: Yes Caregiver/Support person: No Foster care: No Household members: children Housing: apartment Number of Children: 2 number of grandchildren: 0 Communication Needs: None Education Level: high school 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 Pets and animals: No Sexually active: Yes Do you think of yourself as: straight/heterosexual What is your relationship status?: How often do you talk on the phone with friends or family?: three or more times per week How often do you get together with friends or relatives?: three or more times per week Do you belong to any clubs or organized social groups?: no Panel score (0-1 are the most socially isolated patients): 1 What type of physical activity do you participate in: none Lana/Mormon: None Special lana needs: No Seatbelt use: never Helmet use: No Drive intox or ride w/intox commercial driver's license 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
[2024-09-14 18:08] VITALS: BP 128/77; PULSE 94; RESP 16; TEMP 36.1; O2SAT 97
== END 2024-09-14 18:09 | disposition home or self-care (01) ==
PROVIDERS: Emergency Provider Physician Assistant; PCP Family Medicine
DX: S62.605A Fracture of unspecified phalanx of left ring finger, initial encounter for closed fracture (principal); X58.XXXA Exposure to other specified factors, initial encounter
CPT/HCPCS: 99283 ×2; 29130; 73140